=== PATIENT | female | born 1955 | race African-American/Black ===

== ENCOUNTER → 2018-06-05 12:22 | Outpatient (CLI) | payer MEDICAID | END | disposition home or self-care (01) | LOC: D.US 06-04 14:00 | DX: I12.9 Hypertensive chronic kidney disease with stage 1 through stage 4 chronic kidney disease, or unspecified chronic kidney disease (principal); N18.5 Chronic kidney disease, stage 5; E11.21 Type 2 diabetes mellitus with diabetic nephropathy ==

== ENCOUNTER 2018-06-27 08:05 | Outpatient (CLI) | payer MEDICAID ==
[~2018-06-27] VITALS: Ht 170.2 cm; Wt 109.8 kg
[2018-06-27 08:36] LABS: BASOPHILS 0.2 % (0-2); EOSINOPHILS 0.2 % (0-7); HEMATOCRIT 32.7 % (36.0-48.0); HEMOGLOBIN 10.9 g/dL (12-16); IMMATURE GRANULOCYTES 0.2 % (0-5); LYMPHOCYTES 22.8 % (15-50); MCH 30.2 pg (26.0-34.0); MCHC 33.3 g/dL (31.0-37.0); MCV 90.6 fL (80.0-100.0); MEAN PLATELET VOLUME 10.3 fL (7.4-10.4); MONOCYTES 12.8 % (2-11); NEUTROPHILS 63.8 % (40-80); PLATELET COUNT 194 10x3/uL (130-400); RBC 3.61 10x6/uL (4.00-5.40); RDW 12.9 % (11.5-14.5); WBC 5.2 10x3/uL (4.8-10.8)
[2018-06-27 08:55] LABS: INR 1.07 (0.85-1.17); PROTIME 13.4 SECONDS (11.6-15.0)
[2018-06-27 08:56] LABS: APTT 63.2 SECONDS (22.8-39.4)
[2018-06-27 09:05] LABS: ANION GAP 22.6 mmol/L (8-16); CALCIUM 11.9 mg/dL (8.5-10.1); CARBON DIOXIDE 21.6 mmol/L (21.0-32.0); CREATININE - SERUM 8.7 mg/dL (0.6-1.3); POTASSIUM - SERUM 5.2 mmol/L (3.5-5.1)
[2018-06-27 09:35] VITALS: Ht 170.2 cm; Wt 109.8 kg
[2018-06-27] MEDS ORDERED: HALDOL DECAN50 MG/ML (10:14)
[2018-06-27] MEDS ORDERED: LEVOTHYROXINE137 MCG PO (10:15)
[2018-06-27] MEDS ORDERED: CATAPRES TTS-10.1 MG TRANSDERM (10:16)
[2018-06-27] MEDS ORDERED: RENVELA800 MG PO (10:17)
[2018-06-27] MEDS ORDERED: LYRICA75 MG PO (10:17)
[2018-06-27] MEDS ORDERED: COZAAR50 MG PO (10:18)
== END 2018-06-27 12:51 | disposition home or self-care (01) ==
LOC: D.OPS 08:05 → EDSTATUS 14:30 → D.OPS 14:30
PROVIDERS: Surgery
DX: N18.6 End stage renal disease (principal); Z01.810 Encounter for preprocedural cardiovascular examination; Z01.811 Encounter for preprocedural respiratory examination; Z01.812 Encounter for preprocedural laboratory examination; Z53.9 Procedure and treatment not carried out, unspecified reason

== ENCOUNTER 2018-07-11 07:03 | Inpatient (IN) | payer MEDICAID ==
[~2018-07-11] VITALS: Ht 170.2 cm; Wt 109.1 kg
--- NOTE | ~2018-07-11 | OP ---
PATIENT NAME: KAJAL COOPER MEDICAL RECORD: [id number] :53 LOCATION:D. D.2139 ADMISSION DATE:07/11/18 SURGEON: NICOLETTE WANG MD DATE OF OPERATION: 07/15/2018 REFERRED BY: Dr. Watson and Dr. Nunez. PREOPERATIVE DIAGNOSIS: End-stage renal disease. POSTOPERATIVE DIAGNOSIS: End-stage renal disease. OPERATION PERFORMED: Implantation of an Artegraft, axillo-axillary AV graft in the left upper extremity. SURGEON: Nicolette Wang MD ANESTHESIA: Regional block plus general anesthetic via LMA per PHOTOENGRAVING PHOTOGRAPHER. PREOPERATIVE NOTE: Ms. Cooper is a 63-year-old -Cam[place] female patient with end-stage renal disease. She actually just began dialysis last week. After presenting to the hospital for surgery for implantation of her graft, she was found to be a severely hyperkalemic and required medical treatment for that, along with placement of a tunneled dialysis catheter. She has been dialyzed and is now stable with regard to her potassium levels and is returned to the operating room for implantation of that graft. DESCRIPTION OF PROCEDURE: Under general anesthesia with an LMA and after a regional block was applied, the patient was placed on the operating table and prepped and draped in a sterile manner. I examined her with Duplex ultrasound after applying nitroglycerin paste to the skin of the arm and forearm, and using a Roger drain as a proximal venous tourniquet. She really had no usable veins for AV graft in the forearm or antecubital space. Disappointingly as I hoped to be able to implant a forearm loop graft. The axillary vein and artery were suitable and I elected to go ahead with axillo-axillary graft. A transverse axillary incision was made and hemostasis obtained with electrocautery. The axillary artery and proximal basilic vein and axillary vein were dissected and isolated, controlled with Silastic loops. The artery was opened for a 7-mm arteriotomy and flushed proximally and distally with heparinized saline. No systemic anticoagulation was used. I chose a standard Artegraft. This was about 6-7 mm in diameter. It was flushed with saline and heparinized saline as per machine operator farmworker's directions. It was then bevelled and anastomosed end-to-side to the artery with running 6-0 Prolene. Two counter incisions were made and the graft was then placed in a very superficial subcutaneous tunnel and brought back to the axillary wound. It was intermittently flushed with heparinized saline and distended with arterial blood and pressure to make certain there was no twisting. The vein was occluded. It was opened and flushed proximally with heparinized saline and the artery graft was shortened slightly and beveled and anastomosed end-to-side that is end of graft to side of vein with running 6-0 Prolene. When completed, the occluding loops and clamps were released, excellent flow developed immediately within the graft. There was a little bleeding along this venous suture line, which was treated with application of Fibrillar oxidized cellulose. Hemostasis was very adequate at the end of the operation. The wound was irrigated with gentamicin solution. The patient BEING ALLERGIC TO PENICILLIN, she was not given any OPERATIVE REPORT [id number] KAJAL COOPER cephalosporins. She was given vancomycin as her prophylactic systemic antibiotic at the initiation of the operation. The wound was infiltrated with 0.25% Marcaine without epinephrine that is the axillary wound. The 2 counter incisions just above the antecubital space should be covered by her nerve block. The axillary incision was closed with interrupted inverted 3-0 Vicryl and running intracuticular 4-0 Monocryl and the 2 smaller incisions after irrigation with antibiotic solution were closed with interrupted inverted 3-0 Vicryl and then running intracuticular 4-0 Monocryl. The skin incisions were sealed and closed further with Dermabond and dressed with Maxorb AG, Cavilon skin prep, and Tegaderm. The patient was awakened and taken to recovery room. During the last portion of the operation while under anesthesia still, the patient had a marked sudden episode of bradycardia associated with ST segment elevations and Dr. Jansen was called to the room to assist the PHOTOENGRAVING PHOTOGRAPHER and anesthetic changes were made and the patient's ST segments returned to normal and her rate increased to normal sinus rhythm. I requested an EKG in the recovery room and we will send her back to [facility] on telemetry and request cardiology consultation. The patient is diabetic and hypertensive and has end-stage renal disease. I do not know her cardiac history. Blood loss during the procedure was less than 5 cc. None was replaced. Sponges, instruments, and needles were accounted for. No drain was used and no surgical specimen submitted for histopathology. TRANSINT:[id number] Voice Confirmation ID: [id number] DOCUMENT ID: [id number] cc: [facility] [phone] [facility] [phone] NICOLETTE WANG MD CC: GERSON DEGRAChristian DICKEY, ROSALIE NUNEZ, [facility] [id number] HU MARTINEZ DICTATION DATE: 07/15/18 1305 PLANNER/SCHEDULER: 07/15/18 1433 ADM IN [facility] [address] [place] [address]
[~2018-07-11 07:03] MED LIST: CATAPRES TTS-10.1 MG TD; COZAAR50 MG PO; HALDOL DECAN50 MG/ML; LEVOTHYROXINE137 MCG PO; LYRICA75 MG PO; RENVELA800 MG PO
[2018-07-11 07:25] LABS: BASOPHILS 0.2 % (0-2); EOSINOPHILS 0 % (0-7); HEMATOCRIT 32.7 % (36.0-48.0); HEMOGLOBIN 10.5 g/dL (12-16); LYMPHOCYTES 24.5 % (15-50); MCH 29.8 pg (26.0-34.0); MCHC 32.1 g/dL (31.0-37.0); MCV 92.9 fL (80.0-100.0); MEAN PLATELET VOLUME 10.6 fL (7.4-10.4); MONOCYTES 10.7 % (2-11); NEUTROPHILS 64.6 % (40-80); RBC 3.52 10x6/uL (4.00-5.40); RDW 12.9 % (11.5-14.5); WBC 4.2 10x3/uL (4.8-10.8)
[2018-07-11 07:26] LABS: PLATELET COUNT 143 10x3/uL (130-400)
[2018-07-11 07:32] LABS: PROTIME 12.7 SECONDS (11.6-15.0)
[2018-07-11 07:36] LABS: CALCIUM 10.7 mg/dL (8.5-10.1); CARBON DIOXIDE 24.4 mmol/L (21.0-32.0); CREATININE - SERUM 8.2 mg/dL (0.6-1.3)
[2018-07-11 08:03] LABS: POTASSIUM - SERUM 6.4 mmol/L (3.5-5.1)
--- NOTE | 2018-07-11 08:19 | NUR ---
MJ WILL APN PAGED THROUGH ANSWERING SERVICE REGARDING PATIENT'S LAB INCLUDING POTASSIUM, CREATININE, AND PTT
[2018-07-11] MEDS ORDERED: ZOCOR20 MG PO (08:49)
[2018-07-11] MEDS ORDERED: NORVASC5 MG PO (08:51)
[2018-07-11] MEDS ORDERED: ZYLOPRIM100 MG PO (08:51)
[2018-07-11] MEDS ORDERED: FUROSEMIDE40 MG PO (08:52)
[2018-07-11] MEDS ORDERED: AMANTADINE100 M1 PO (08:53)
[2018-07-11] MEDS ORDERED: SODIUM BICARBO325 MG PO (08:53)
[2018-07-11] MEDS ORDERED: BUTALB-APAP-CA1 EACH PO (08:54)
[2018-07-11] MEDS ORDERED: GLIPIZIDE10 MG PO (08:55)
[2018-07-11] MEDS ORDERED: COZAAR50 MG PO (08:55)
[2018-07-11] MEDS ORDERED: BASAGLAR K100 UNIT/1 SC (08:56)
[2018-07-11] MEDS ORDERED: XYZAL PO (09:00)
[2018-07-11 10:07] VITALS: BMI 32.9
[2018-07-11 11:15] LABS: ANION GAP 19.4 mmol/L (8-16); CALCIUM 11.2 mg/dL (8.5-10.1); CARBON DIOXIDE 21.5 mmol/L (21.0-32.0); CREATININE - SERUM 8.3 mg/dL (0.6-1.3); POTASSIUM - SERUM 5.9 mmol/L (3.5-5.1)
--- NOTE | 2018-07-11 13:19 | NUR ---
TRANSFER FROM OR BY STRETCHER. OREINTED TO ROOM. CALL LIGHT IN REACH. WILL CONT. PLAN OF CARE.
[2018-07-11 13:57] VITALS: BP 166/85; BMI 32.9
--- NOTE | 2018-07-11 15:11 | NUR ---
NEW ORDER RECEIVED FOR [facility]AYEXELATE AND PT IS GONE TO DIALYSIS. WILL ADMINISTER MED UPON RETURN TO ROOM.
--- NOTE | 2018-07-11 16:04 | MORECARE ---
CASE MANAGEMENT DISCHARGE SUMMARY PATIENT: KAJAL BOLTON UNIT: [id number] ADM DATE: 07/11/18 AGE: 63 : 54 SEX: F ROOM/BED: D.2131 AUTHOR: ALISON BEE PHYSICIAN: REFERRING PHYSICIAN: HU LUNDBERG MD DATE OF SERVICE: 07/11/18 Discharge Plan Patient Name: KAJAL BOLTON [facility] [facility] 1955 Planned Disposition: Home Anticipated Discharge Date: Discharge Date: Expected LOS: 0 Initial Reviewer: [email or web address] Initial Review Date: 07/11/2018 Generated: 07/11/18 5:04 pm Comments DCP- Discharge Planning Updated by [email or web address]: Mikey Funez on 07/11/18 2:[address] Patient Name: KAJAL BOLTON Admission Status: Elective Accout number: [id number] Admission Date: 07-11-2018 : 1955 Admission Diagnosis: Attending: HU LUNDBERG Current LOS: 1 Anticipated DC Date: Planned Disposition: Home Primary Insurance: MEDICAID [place] Discharge Planning Comments: CM RECEIVED ORDER FOR ARRANGEMENT OF OUTPATIENT DIALYSIS. RN RAMON CASSIDY SPOKE TO [facility] OF PATIENT PATHWAYS AND NOTIFIED OF ORDER. CM ATTEMPTED TO MEET WITH PT FOR INITIAL ASSESSMENT OF DISCHARGE NEEDS. PT WAS NOT IN ROOM AT APPROXIMATELY 1515 AND 1545 HOURS. CM TO ATTEMPT ASSESSMENT OF PT AT A LATER TIME. Tennis Centre Manager: Mikey Funez Patient Name: KAJAL BOLTON Page [id number] at 1604 All edits/amendments must be made on the electronic document DICTATION DATE: 07/11/18 1604 DATA PROCESSOR: EDWARD 07/11/18 1604 RPT#: [id number] DC DATE: STATUS: [facility] [address] [place] [address] END OF REPORT
--- NOTE | 2018-07-11 21:45 | NUR ---
RESUMING CARE. PT IS ALERT LAYING IN THE BED WATCHING TV. NO C/O VOICED AT THIS TIME. RESPIRATIONS EVEN AND UNLABORED. BED IN LOW POSITON WITH CALL LIGHT IN REACH. SIDE RAILS UP X 2. WILL CONTINUE TO MONITOR PT AND FOLLOW PLAN OF CARE.
[2018-07-11 21:51] VITALS: BP 149/90
[2018-07-11 23:53] VITALS: BP 139/69
[2018-07-12 03:55] VITALS: BP 140/78
--- NOTE | 2018-07-12 04:30 | NUR ---
RN NOTE: PATIENT RESTING COMFORTABLY IN BED. RESPIRATIONS ARE EVEN AND UNLABORED. NO S/S OF DISTRESS. CALL LIGHT IWTHIN REACH. WILL CPOC.
[2018-07-12 05:29] LABS: BASOPHILS 0.2 % (0-2); EOSINOPHILS 0 % (0-7); HEMATOCRIT 31.2 % (36.0-48.0); LYMPHOCYTES 14.5 % (15-50); MCH 29.4 pg (26.0-34.0); MCHC 32.1 g/dL (31.0-37.0); MCV 91.8 fL (80.0-100.0); MEAN PLATELET VOLUME 11.3 fL (7.4-10.4); MONOCYTES 15.7 % (2-11); NEUTROPHILS 69.6 % (40-80); PLATELET COUNT 123 10x3/uL (130-400); RDW 12.9 % (11.5-14.5); WBC 4.7 10x3/uL (4.8-10.8)
[2018-07-12 05:58] LABS: ANION GAP 16.4 mmol/L (8-16); CALCIUM 10.6 mg/dL (8.5-10.1); CARBON DIOXIDE 26.6 mmol/L (21.0-32.0); CREATININE - SERUM 6.6 mg/dL (0.6-1.3); THYROID STIMULATING HORMONE 1.36 uIU/mL (0.36-3.74)
--- NOTE | 2018-07-12 07:11 | NUR ---
PT LYING IN BED. REQUESTS REPOSITIONING, PROVIDED. NO CONCERNS/COMPLAINTS AT THIS TIME. CL IN REACH. SRX2.
[2018-07-12 07:28] LABS: HEP B CORE AB TOTAL Negative (Negative); HEPATITIS C ANTIBODY <0.1 S/CO RAT (0.0-0.9)
--- NOTE | 2018-07-12 10:24 | NUR ---
IN DIALYSIS AT THIS TIME. WILL CONT. PLAN OF CARE.
[2018-07-12 10:53] VITALS: Ht 170.2 cm; Wt 109.1 kg
--- NOTE | 2018-07-12 16:40 | NUR ---
PT ACCIDENTLY PULLED OUT I/V. STILL CONFUSED, DOES NOT REMMEBER TAKING IT OUT. FOUND IT TANGLED IN HER BEDSHEETS. WILL RESTART
[2018-07-12 17:11] VITALS: BP 129/87
--- NOTE | 2018-07-12 19:31 | NUR ---
RECEIVED REPORT, WILL ASSUME CARE OF PT, PT ASKING FOR THE BLINDS TO BE CLOSED, DENIES ANY OTHER NEEDS, BED IS LOW, SRX2, CALL LIGHT IN REACH, WILL CONTINUE PLAN OF CARE
[2018-07-12 20:30] VITALS: BP 188/89
--- NOTE | 2018-07-12 21:00 | NUR ---
[id number]-146, NO COVERAGE AT THIS TIME, DIDNT GIVE LANTUS-DOSE NEEDS TO BE VERIFIED
[2018-07-13 04:30] VITALS: BP 155/82
--- NOTE | 2018-07-13 05:00 | NUR ---
PT RESTING IN BED WITH NO DISTRESS. RESPS EVEN/NONLABORED. MONITOR AND CPOC. CALL LIGHT IN REACH. NO NEEDS AT THIS TIME.
[2018-07-13 05:28] LABS: BASOPHILS 0.2 % (0-2); EOSINOPHILS 0 % (0-7); HEMATOCRIT 32.7 % (36.0-48.0); HEMOGLOBIN 10.6 g/dL (12-16); IMMATURE GRANULOCYTES 0.2 % (0-5); LYMPHOCYTES 11.7 % (15-50); MCH 29.8 pg (26.0-34.0); MCHC 32.4 g/dL (31.0-37.0); MCV 91.9 fL (80.0-100.0); MEAN PLATELET VOLUME 11.2 fL (7.4-10.4); MONOCYTES 12.2 % (2-11); NEUTROPHILS 75.7 % (40-80); PLATELET COUNT 112 10x3/uL (130-400); RBC 3.56 10x6/uL (4.00-5.40); RDW 12.9 % (11.5-14.5)
[2018-07-13 05:38] LABS: WBC 6.1 10x3/uL (4.8-10.8)
[2018-07-13 05:42] LABS: ANION GAP 18.4 mmol/L (8-16); CALCIUM 11.4 mg/dL (8.5-10.1); CREATININE - SERUM 6.4 mg/dL (0.6-1.3); POTASSIUM - SERUM 4.4 mmol/L (3.5-5.1)
--- NOTE | 2018-07-13 07:32 | NUR ---
PT LYING IN BED. SISTER CALLED AND REQUESTED HER TO BE CAHGNED. PT IS CLEAN. NO PROBLEMS STATED OR NOTED. I/V STILL OUT. CL IN REACH.
[2018-07-13 09:18] VITALS: BP 136/85
--- NOTE | 2018-07-13 10:57 | NUR ---
UP SOB WITH CALL LIGHT IN REACH. NO NEEDS VOICED. WILL MONITOR.
--- NOTE | 2018-07-13 11:49 | NUR ---
PT CLAIMS THERE ARE PEOPLE IN THE [place]IRROR WATCHING HER. ALSO ASKED FOR A CAPE EARLIER TODAY. I REASURED HER THAT THERE WERE NO PEOPLE IN THE ROOM AND THAT SHE WAS SAFE. PT STATED SHE UNDERSTOOD AND FELT BETTER. CL IN REACH. PT REQUESTED DOOR CLOSED.
--- NOTE | 2018-07-13 12:49 | NUR ---
[facility] CALLED STATING THEY WILL DO THYROID SCAN TOMORROW. NO PREP NEEDED. STATES THEY DO NOT HAVE THE DOSE TO DO IT TODAY.
[2018-07-13 14:30] VITALS: BP 140/72
--- NOTE | 2018-07-13 19:09 | OP ---
PATIENT NAME: KAJAL COOPER MEDICAL RECORD: [id number] :53 LOCATION:D. D.2139 ADMISSION DATE:07/11/18 SURGEON: NICOLETTE WANG MD DATE OF OPERATION: 07/11/2018 REFERRED BY: Hu Watson MD PREOPERATIVE DIAGNOSES: End-stage renal disease with hyperkalemia, now requiring dialysis access. POSTOPERATIVE DIAGNOSES: End-stage renal disease with hyperkalemia, now requiring dialysis access. OPERATION PERFORMED: Implantation of a 19-cm HemoSplit hemodialysis tunneled catheter via the right internal jugular vein with intraoperative ultrasound as well as fluoroscopic guidance. SURGEON: Nicolette Wang MD ANESTHESIA: General per LMA by PLATFORM INSPECTOR. PREOPERATIVE NOTE: Ms. Cooper is a 63-year-old -Ecu[place]orean female with end-stage renal disease, who has not been on dialysis. She was scheduled to come in today for implantation of an AV graft. She was found this morning on her laboratory testing to be hyperkalemic, which required treatment, and Dr. Watson asked that I implant a HemoSplit catheter. So, I am going to do that today and we will delay or put off implantation of the AV graft until another day. So, much of the time alloted to her today has been eaten up by the change in planning on the treatment of her hyperkalemia, that in order to finish all of the patient's schedule for today will have to pass on the fistula or on the graft until another time. DESCRIPTION OF PROCEDURE: Under general anesthesia in supine position, the patient was prepped and draped in sterile manner. Ultrasound guidance was used to first locate the internal jugular vein. It was of normal caliber, fully compressible and generally normal. There was noted about a 1.5-2 cm round or spherical hypoechoic thyroid nodule in the right thyroid lobe. This does have internal echoes and could be debris and fluid-filled cyst or could be a solid lesion. I recommend a followup ultrasound examination and possibly an ultrasound-guided aspiration or biopsy as well. An incision was made at the base of the neck over the internal jugular vein and a micropuncture needle and guidewire was inserted. A catheter and then a larger guidewire were inserted and dilators were passed over the larger wire under fluoroscopy with the tip of the wire in the right atrium and at times in the right ventricle. Lastly, a dilator peel-away sheath was inserted. I chose a 19-cm HemoSplit, made an incision beneath the clavicle and passed the catheter through a subcutaneous tunnel from that incision up to the cervical incision where the catheter was then inserted through the peel-away sheath as it was removed. The catheter ended up positioned appropriately in the right atrium and there were no kinks or other evidence of complication. Both lumens of the catheter were then accessed and aspirated. Free return of blood confirmed. They were then flushed with saline and lastly heparin-locked with heparin 100 units per cc. The catheter was sutured to the skin near the entry site with 2-0 Prolene. The cervical incision was closed with a single interrupted inverted OPERATIVE REPORT [id number] KAJAL COOPER 3-0 Vicryl and Dermabond glue and dressed with Maxorb Ag, Tegaderm, and Cavilon skin prep. A chlorhexidine skin disk was placed around the catheter at the exit site and over that a standard sterile CVL dressing. The patient was awakened and taken to the recovery room. PLAN: The patient at this time remains an outpatient and can be discharged to home. We will find out Dr. Watson's plan. She can either be dialyzed here or perhaps at one of the outpatient dialysis units today or tomorrow. I will plan to have her back in the operating room, hopefully in the next couple of weeks to do her AV graft and we will try to get her thyroid ultrasound on either today or later as an outpatient. Blood loss during the procedure was about 5 cc and unreplaced. Sponges, instruments, and needles were accounted for. No drain was used and no surgical specimen submitted for histopathology. TRANSINT:[id number] Voice Confirmation ID: [id number] DOCUMENT ID: [id number] NICOLETTE WANG MD at 1909 CC: HU WATSON MD [id number] DICTATION DATE: 07/11/18 1235 DATA SYSTEMS MANAGER: 07/11/18 1411 ADM IN [place] [id number] [place] [id number]
--- NOTE | 2018-07-13 19:30 | NUR ---
RECEIVED REPORT, WILL ASSUME CARE OF PT, PT DENIES ANY NEEDS AT THIS TIME, BED IS LOW, SRX2, CALL LIGHT IN REACH, WILL CONTINUE PLAN OF CARE
[2018-07-13 20:30] VITALS: BP 171/91
--- NOTE | 2018-07-13 21:00 | NUR ---
[id number] 6 UNITS HUMULIN R-14 UNITS OF LANTUS
[2018-07-14 04:30] VITALS: BP 143/69
--- NOTE | 2018-07-14 05:00 | NUR ---
PT RESTING IN BED WITH NO DISTRESS. RESPS EVEN/NONLABORED. CALL LIGHT IN REACH. MONITOR AND CPOC.
[2018-07-14 05:34] LABS: BASOPHILS 0.2 % (0-2); EOSINOPHILS 0.2 % (0-7); HEMATOCRIT 30.7 % (36.0-48.0); IMMATURE GRANULOCYTES 0.3 % (0-5); LYMPHOCYTES 20.3 % (15-50); MCH 29.6 pg (26.0-34.0); MCHC 32.6 g/dL (31.0-37.0); MCV 90.8 fL (80.0-100.0); MEAN PLATELET VOLUME 11.6 fL (7.4-10.4); PLATELET COUNT 108 10x3/uL (130-400); RBC 3.38 10x6/uL (4.00-5.40); RDW 12.8 % (11.5-14.5); WBC 6.1 10x3/uL (4.8-10.8)
[2018-07-14 06:12] LABS: ANION GAP 18.8 mmol/L (8-16); CALCIUM 10.8 mg/dL (8.5-10.1); CARBON DIOXIDE 24.3 mmol/L (21.0-32.0); POTASSIUM - SERUM 4.1 mmol/L (3.5-5.1)
[2018-07-14 06:13] LABS: CREATININE - SERUM 8.4 mg/dL (0.6-1.3)
--- NOTE | 2018-07-14 07:30 | NUR ---
A/A/OX4. NO REQUESTS AND DENIES ANY PAIN OR DISCOMFORT. ASSESSMENT COMPLETED AND WILL CONTINUE POC.
[2018-07-14 10:14] VITALS: BP 180/94
--- NOTE | 2018-07-14 19:30 | NUR ---
RECEIVED REPORT, WILL ASSUME CARE OF PT, DENIES ANY NEEDS AT THIS TIME, BED IS LOW, SRX2, CALL LIGHT IN REACH, WILL CONTINUE PLAN OF CARE
[2018-07-14 19:55] VITALS: BP 143/79
[2018-07-15 00:11] VITALS: BP 142/72
[2018-07-15 03:50] VITALS: BP 140/65
[2018-07-15 07:34] LABS: ANION GAP 22.2 mmol/L (8-16); CALCIUM 10.3 mg/dL (8.5-10.1); CARBON DIOXIDE 22.6 mmol/L (21.0-32.0); CREATININE - SERUM 7.4 mg/dL (0.6-1.3); POTASSIUM - SERUM 3.8 mmol/L (3.5-5.1)
--- NOTE | 2018-07-15 07:35 | NUR ---
ASSESSMENT DONE. DENIES NEEDS.
[2018-07-15 07:47] LABS: BASOPHILS 0.2 % (0-2); EOSINOPHILS 0 % (0-7); HEMATOCRIT 30.3 % (36.0-48.0); HEMOGLOBIN 10.1 g/dL (12-16); IMMATURE GRANULOCYTES 0.2 % (0-5); LYMPHOCYTES 14.1 % (15-50); MCH 29.7 pg (26.0-34.0); MCHC 33.3 g/dL (31.0-37.0); MCV 89.1 fL (80.0-100.0); MEAN PLATELET VOLUME 11.7 fL (7.4-10.4); MONOCYTES 12.2 % (2-11); NEUTROPHILS 73.3 % (40-80); PLATELET COUNT 114 10x3/uL (130-400); RDW 12.8 % (11.5-14.5); WBC 5.4 10x3/uL (4.8-10.8)
--- NOTE | 2018-07-15 08:00 | NUR ---
ASSESSMENT DONE. DENIES NEEDS.
[2018-07-15 09:47] VITALS: BP 130/79
--- NOTE | 2018-07-15 11:00 | NUR ---
TO OR PER BED
--- NOTE | 2018-07-15 13:20 | NUR ---
CARE ASSUMED FROM BECKY RUIZ RN. REPORT RECEIVED
--- NOTE | 2018-07-15 13:32 | NUR ---
Nutrition Follow Up: Chart reviewed. Pt is s/p AV Graft. Diet: Renal ADA PO Intake: 75% meal avg Wt loss noted - likely r/t fluid BM: 07/13/18 Labs reviewed - Glucose continues elevated Meds noted including Lasix, Sorbitol Rec continue current diet. RD following.
[2018-07-15 13:48] VITALS: BP 111/60
--- NOTE | 2018-07-15 13:48 | NUR ---
RETURN FROM RR PER BED. LT ARM DRSG INTACT. JULIAN SLING AND ON PILLOW
[2018-07-15 16:52] LABS: CREATINE KINASE 725 UL (21-215); TROPONIN-I 0.029 ng/mL (0.000-0.060)
[2018-07-15 17:11] LABS: CKMB 3.7 U/L (0.0-3.6)
[2018-07-15 19:21] LABS: ANION GAP 20.1 mmol/L (8-16); CALCIUM 9.1 mg/dL (8.5-10.1); CARBON DIOXIDE 22.4 mmol/L (21.0-32.0); CREATININE - SERUM 7.9 mg/dL (0.6-1.3)
[2018-07-15 19:24] LABS: POTASSIUM - SERUM 4.5 mmol/L (3.5-5.1)
--- NOTE | 2018-07-15 19:58 | NUR ---
RESUMING CARE. PT IS ALERT LAYING IN THE BED WATCHING TV WITH NO C/O VOICED AT THIS TIME. BED IN THE LOW POSITION WITH CALL LIGHT IN REACH. WILL CONTINUE TO MONITOR PT AND FOLLOW PLAN OF CARE.
[2018-07-15 20:41] VITALS: BP 152/65
[2018-07-15 22:05] LABS: CKMB 5.9 U/L (0.0-3.6); CREATINE KINASE 637 UL (21-215); TROPONIN-I 0.036 ng/mL (0.000-0.060)
--- NOTE | 2018-07-15 23:46 | NUR ---
NURSE PRACTIONER AIMEE WEST WAS CALLED AND NOTIFIED OF PT RESULTS PER DR. LUNDBERG ORDERED WHICH WAS BMP
[2018-07-16 00:38] VITALS: BP 140/61
--- NOTE | 2018-07-16 04:05 | NUR ---
RN NOTE: PATIENT RESTING COMFORTABLY. RESPIRATIONS ARE EVEN AND UNLABORED. NO S/S OF DISTRESS. NO C/O PAIN. CALL LIGHT WITHIN REACH WILL CPOC.
[2018-07-16 04:34] VITALS: BP 108/60
[2018-07-16 04:57] LABS: BASOPHILS 0.1 % (0-2); EOSINOPHILS 0 % (0-7); HEMOGLOBIN 9.1 g/dL (12-16); IMMATURE GRANULOCYTES 0.2 % (0-5); LYMPHOCYTES 7.5 % (15-50); MCH 29.5 pg (26.0-34.0); MCHC 32.5 g/dL (31.0-37.0); MCV 90.9 fL (80.0-100.0); MEAN PLATELET VOLUME 11.3 fL (7.4-10.4); MONOCYTES 11.1 % (2-11); NEUTROPHILS 81.1 % (40-80); PLATELET COUNT 106 10x3/uL (130-400); RBC 3.08 10x6/uL (4.00-5.40); RDW 13.1 % (11.5-14.5)
[2018-07-16 05:01] LABS: ANION GAP 19.9 mmol/L (8-16); CALCIUM 9.5 mg/dL (8.5-10.1); CARBON DIOXIDE 24.4 mmol/L (21.0-32.0); CREATININE - SERUM 8.5 mg/dL (0.6-1.3); PHOSPHOROUS 8.9 mg/dL (2.5-4.9); POTASSIUM - SERUM 4.3 mmol/L (3.5-5.1)
[2018-07-16 05:11] LABS: WBC 8.8 10x3/uL (4.8-10.8)
--- NOTE | 2018-07-16 07:40 | NUR ---
REPORT RECEIVED. WILL CONTINUE WITH POC. PT CURRENTLY LYING SUPINE. CALL LIGHT W/I REACH. PT IS AAX2 AND UP WITH ASSIST. RR EVEN AND UNLABORED ON RA. R.AC PIV IS SALINE LOCKED. PT DENIES ANY NEEDS AT THIS TIME. WILL CTM.
[2018-07-16 08:19] VITALS: BP 144/65
--- NOTE | 2018-07-16 09:24 | NUR ---
Dialysis Coordinator: met with pt bedside in room on 07/14/18. Patient MARY BETH obtained for [facility]. Patient from [place], requests placement in [place] (where she's from). Referral sent per patient's request. Awaiting response from [facility] clinic regarding acceptance and chair time. MOLLY REILLY.
--- NOTE | 2018-07-16 10:59 | NUR ---
RESP UL ON . SCDS ON. CALL LIGHT IN REACH. WILL CONT. PLAN OF CARE.
[2018-07-16 12:04] VITALS: BP 136/72
--- NOTE | 2018-07-16 12:06 | CN ---
PATIENT NAME:KAJAL BOLTON MEDICAL RECORD: [id number] : 53 LOCATION:D.M2 D.2139 ADMIT DATE: 07/11/18 ACCOUNT: [id number] CONSULTING PHYSICIAN: MATT FERNANDEZ MD REFERRING PHYSICIAN: ROSALIE NUNEZ MD DATE OF CONSULTATION: 07/15/2018 IDENTIFYING DATA: The patient is 63 years old and she is admitted to the hospital for AV fistula placement. CHIEF COMPLAINT: None. HISTORY OF PRESENT ILLNESS: The patient has a long history of diabetes, hypertension, and now has chronic renal failure and is on dialysis. She is hospitalized to have a fistula placed. She has a psychiatric history that is significant for schizophrenia and most likely has a history of medication noncompliance as she is taking a scheduled dose of Haldol Decanoate monthly. At this time, she is under acute stress. She has had some intermittent hallucinations, but no thoughts of harming herself or others and no significant disruptive behaviors; just some oddness, consistent with her chronic mental illness. There is no evidence of acute dangerousness and she denies wanting to hurt herself or others. ASSESSMENT: Schizophrenia. PLAN: I think the patient will improve given a little bit of time and return back to her daily routine. She has already had her Haldol Decanoate injection this month. I am going to increase her scheduled Haldol from 4 to 5 mg a day. If there is some anxiety, I think a p.r.n. dose of Ativan here would be helpful. There is no evidence of acute dangerousness and she should just be followed on an outpatient basis by her primary care physician, renal specialist, and psychiatrist. TRANSINT:[id number] Voice Confirmation ID: [id number] DOCUMENT ID: [id number] MATT FERNANDEZ MD at 1206 CC: [id number] DICTATION DATE: 07/15/18 161 SALES MANAGEMENT INTERN: 07/15/18 192 ADM IN [place] [address] [place] [address]
--- NOTE | 2018-07-16 12:18 | MORECARE ---
CASE MANAGEMENT DISCHARGE SUMMARY PATIENT: KAJAL BOLTON UNIT: [id number] ADM DATE: 07/11/18 AGE: 63 : 54 SEX: F ROOM/BED: D.2139 AUTHOR: ALISON BEE PHYSICIAN: REFERRING PHYSICIAN: ROSALIE NUNEZ MD DATE OF SERVICE: 07/16/18 Discharge Plan Patient Name: KAJAL BOLTON [facility] [facility] 1955 Planned Disposition: Home Anticipated Discharge Date: 07/17/18 Discharge Date: Expected LOS: 6 Initial Reviewer: [email or web address] Initial Review Date: 07/11/2018 Generated: 07/16/18 1:18 pm Comments DCP- Discharge Planning Updated by [email or web address]: Mikey Funez on 07/11/18 2:[address] Patient Name: KAJAL BOLTON Admission Status: Elective Accout number: [id number] Admission Date: 07-11-2018 : 1955 Admission Diagnosis: Attending: HU LUNDBERG Current LOS: 1 Anticipated DC Date: Planned Disposition: Home Primary Insurance: MEDICAID [place] Discharge Planning Comments: CM RECEIVED ORDER FOR ARRANGEMENT OF OUTPATIENT DIALYSIS. RN RAMON CASSIDY SPOKE TO [facility] OF PATIENT PATHWAYS AND NOTIFIED OF ORDER. CM ATTEMPTED TO MEET WITH PT FOR INITIAL ASSESSMENT OF DISCHARGE NEEDS. PT WAS NOT IN ROOM AT APPROXIMATELY 1515 AND 1545 HOURS. CM TO ATTEMPT ASSESSMENT OF PT AT A LATER TIME. Nursing Service Director: Mikey Funez Last DP export: 07/11/18 3:04 p Patient Name: KAJAL BOLTON Page 26790 at 1218 All edits/amendments must be made on the electronic document DICTATION DATE: 07/16/18 1218 FIRE SPRINKLER INSPECTOR: EDWARD 07/16/18 1218 RPT#: [id number] DC DATE: STATUS: ADM IN [facility] [address] [place] [address] END OF REPORT
--- NOTE | 2018-07-16 12:26 | MORECARE ---
CASE MANAGEMENT DISCHARGE SUMMARY PATIENT: KAJAL BOLTON UNIT: [id number] ADM DATE: 07/11/18 AGE: 63 : 54 SEX: F ROOM/BED: D.2139 AUTHOR: ALISON BEE PHYSICIAN: REFERRING PHYSICIAN: ROSALIE NUNEZ MD DATE OF SERVICE: 07/16/18 Discharge Plan Patient Name: KAJAL BOLTON Facility: [facility]:[place] : 1955 Planned Disposition: Home Anticipated Discharge Date: 07/17/18 Discharge Date: Expected LOS: 6 Initial Reviewer: [email or web address] Initial Review Date: 07/11/2018 Generated: 07/16/18 1:26 pm Comments DCP- Discharge Planning Updated by [email or web address]: Mikey Funez on 07/11/18 2:[address] Patient Name: KAJAL BOLTON Admission Status: Elective Accout number: [id number] Admission Date: 07-11-2018 : 1955 Admission Diagnosis: Attending: HU LUNDBERG Current LOS: 1 Anticipated DC Date: Planned Disposition: Home Primary Insurance: MEDICAID [place] Discharge Planning Comments: CM RECEIVED ORDER FOR ARRANGEMENT OF OUTPATIENT DIALYSIS. RN RAMON CASSIDY SPOKE TO [facility] OF PATIENT PATHWAYS AND NOTIFIED OF ORDER. CM ATTEMPTED TO MEET WITH PT FOR INITIAL ASSESSMENT OF DISCHARGE NEEDS. PT WAS NOT IN ROOM AT APPROXIMATELY 1515 AND 1545 HOURS. CM TO ATTEMPT ASSESSMENT OF PT AT A LATER TIME. Compressor Assembler: Mikey Funez DCPIA - Discharge Planning Initial Assessment Updated by [email or web address]: Mikey Funez on 07/16/18 12:21 pm * Is the patient Alert and Oriented? Yes * How many steps to enter\exit or inside your home? NONE * PCP DR. PARKER IN [place] * Pharmacy [facility] IN [place] * Preadmission Environment Home Alone * ADLs Independent * Equipment Glucometer * Other Equipment NO MEDICAL EQUIPMENT PROVIDER PREFERENCE * List name and contact numbers for known caregivers / representatives who currently or will assist patient after discharge: PRIETO TOLLIVER, SISTER, ANA MARÍA KHAN, BROTHER * Verbal permission to speak to the caregivers and representatives has been obtained from the patient. Yes * Community resources currently utilized Private Duty Care * Please name any agencies selected above. [facility], M-F, 4 HOURS PER DAY, * Additional services required to return to the preadmission environment? Yes * Can the patient safely return to the preadmission environment? Yes * Has this patient been hospitalized within the prior 30 days at any hospital? No Last DP export: 07/16/18 11:18 a Patient Name: KAJAL BOLTON Page [id number] at 1226 All edits/amendments must be made on the electronic document DICTATION DATE: 07/16/18 1225 SUSTAINABLE LANDSCAPE ARCHITECT: DM 07/16/18 1225 RPT#: [id number] DC DATE: STATUS: ADM IN [facility] [address] [place] [address] END OF REPORT
--- NOTE | 2018-07-16 12:32 | MORECARE ---
CASE MANAGEMENT DISCHARGE SUMMARY PATIENT: KAJAL BOLTON UNIT: [id number] ADM DATE: 07/11/18 AGE: 63 : 54 SEX: F ROOM/BED: D.1197 AUTHOR: ALISON BEE PHYSICIAN: REFERRING PHYSICIAN: ROSALIE NUNEZ MD DATE OF SERVICE: 07/16/18 Discharge Plan Patient Name: KAJAL BOLTON Facility: [facility]:[place] : 1955 Planned Disposition: Home Anticipated Discharge Date: 07/17/18 Discharge Date: Expected LOS: 6 Initial Reviewer: [id number] Initial Review Date: 07/11/2018 Generated: 07/16/18 1:32 pm Comments DCP- Discharge Planning Updated by [id number]: Mikey Funez on 07/16/18 11:[address] Patient Name: KAJAL BOLTON Admission Status: Elective Accout number: [id number] Admission Date: 07-11-2018 : 1955 Admission Diagnosis:TYPE 2 DIABETES MELLITUS W DIABETIC CHRONIC KIDNEY DISE Attending: ROSALIE NUNEZ Current LOS: 5 Anticipated DC Date: 07-17-2018 Planned Disposition: Home Primary Insurance: MEDICAID [place] Discharge Planning Comments: CM RECEIVED ORDER FOR DISCHARGE PLANNING AND OUTPATIENT DIALYSIS CLINIC ARRAGEMENT IN [place]. CM NOTIFIED JASPREET OF [facility] WHO MET WITH PT AND ADVISED THAT [facility] DOES NOT HAVE AVAILABLE CHAIR AND SHE WILL BE CONTACTING PT'S BROTHER AND WORKING FOR CLINIC ARRANGEMENT IN [place]. CM MET WITH PT IN ROOM TO DISCUSS DISCHARGE PLANNING AND NEEDS. PT REPORTS LIVING AT HOME INDEPENDENTLY AND ALONE. PT HAS A GLUCOMETER WITH NO MEDICAL EQUIPMENT PROVIDER PREFERENCE. PT HAS PERSONAL CARE WITH [facility] IN [place]. PT REPORTS SHE WILL BE ABLE TO GET TO DIALYSIS IN [place] AND THAT HER BROTHER ANA MARÍA KHAN WILL BE TRANSPORTING PT TO AND FROM DIALYSIS. CM DISCUSSED AVAILABILITY OF HOME HEALTH, REHAB SERVICES AND MEDICAL EQUIPMENT. PT DENIES DISCHARGE NEEDS, DECLINES HOME HEALTH NURSE OR THERAPY SERVICES. PT WOULD LIKE CM TO ASK PERSONAL ARE TO INCREASE THE HOURS AND DO SATURDAY SERVICES IF POSSIBLE. PT REPORTS HER SISTER WILL PICK HER UP FOR DISCHARGE HOME. CM CALLED [facility], , SPOKE TO JASPREET WHO INFORMED CM THAT PT'S HOURS ARE AT THE MAXIMUM AND SHE WILL LET THE REGISTERED NURSE KNOW OF PT'S REQUEST FOR WEEKEND HOURS TO SEE IF THEY CAN MEET PT'S EXPECTATIONS. PT DECLINES HOME HEALTH OR REHAB SERVICES. PT PLANS TO DISCHARGE HOME ALONE AND HAS [employer]. FAMILY TO TRANSPORT HOME AT DISCHARGE. CM WAITING OUTPATIENT DIALYSIS CLINIC ARRANGEMENT BY [facility]IENT [facility] COORDINATOR. Check Writing Machine Operator: Mikey Funez DCP- Discharge Planning Updated by [id number]: Mikey Funez on 07/11/18 2:[address] Patient Name: KAJAL BOLTON Admission Status: Elective Accout number: [id number] Admission Date: 07-11-2018 : 1955 Admission Diagnosis: Attending: HU LUNDBERG Current LOS: 1 Anticipated DC Date: Planned Disposition: Home Primary Insurance: MEDICAID [place] Discharge Planning Comments: CM RECEIVED ORDER FOR ARRANGEMENT OF OUTPATIENT DIALYSIS. RN CM HOUSE SPOKE TO JASPREET OF [facility] AND NOTIFIED OF ORDER. CM ATTEMPTED TO MEET WITH PT FOR INITIAL ASSESSMENT OF DISCHARGE NEEDS. PT WAS NOT IN ROOM AT APPROXIMATELY 1515 AND 1545 HOURS. CM TO ATTEMPT ASSESSMENT OF PT AT A LATER TIME. Check Writing Machine Operator: Mikey Funez DCPIA - Discharge Planning Initial Assessment Updated by [id number]: Mikey Funez on 07/16/18 12:21 pm * Is the patient Alert and Oriented? Yes * How many steps to enter\exit or inside your home? NONE * PCP DR. PARKER IN [place] * Pharmacy [facility] [place] * Preadmission Environment Home Alone * ADLs Independent * Equipment Glucometer * Other Equipment NO MEDICAL EQUIPMENT PROVIDER PREFERENCE * List name and contact numbers for known caregivers / representatives who currently or will assist patient after discharge: PRIETO TOLLIVER, SISTER, ANA MARÍA KHAN, BROTHER * Verbal permission to speak to the caregivers and representatives has been obtained from the patient. Yes * Community resources currently utilized Private Duty Care * Please name any agencies selected above. [employer], M-F, 4 HOURS PER DAY, * Additional services required to return to the preadmission environment? Yes * Can the patient safely return to the preadmission environment? Yes * Has this patient been hospitalized within the prior 30 days at any hospital? No Last DP export: 07/16/18 11:26 a Patient Name: KAJAL BOLTON Page 45762 at 1232 All edits/amendments must be made on the electronic document DICTATION DATE: 07/16/18 123 OPERATIONS LABEL CLERK: EDWARD 07/16/18 1232 RPT#: [id number] DC DATE: STATUS: ADM IN [facility] [address] [place] [address] END OF REPORT
--- NOTE | 2018-07-16 19:48 | NUR ---
RESUMED CARE OF PT, LYING IN BED RESPIRATIONS EVEN AND UNLABORED ON ROOM AIR. [address] ST ON TELEMETRY. LEFT ARM IN SLING. NO NEEDS VOICED AT THIS TIME. CALL LIGHT IN REACH. SEE NURSE ASSESSMENT.
[2018-07-16 20:41] VITALS: BP 118/55
[2018-07-17] VITALS: BP 120/48
[2018-07-17 04:55] VITALS: BP 120/50
[2018-07-17 05:13] LABS: ANION GAP 15.6 mmol/L (8-16); CARBON DIOXIDE 28.1 mmol/L (21.0-32.0); CREATININE - SERUM 6.8 mg/dL (0.6-1.3); POTASSIUM - SERUM 3.7 mmol/L (3.5-5.1)
[2018-07-17 05:15] LABS: BASOPHILS 0.1 % (0-2); EOSINOPHILS 0 % (0-7); HEMATOCRIT 26.7 % (36.0-48.0); HEMOGLOBIN 8.7 g/dL (12-16); IMMATURE GRANULOCYTES 0.2 % (0-5); LYMPHOCYTES 9.3 % (15-50); MCH 29.5 pg (26.0-34.0); MCHC 32.6 g/dL (31.0-37.0); MCV 90.5 fL (80.0-100.0); MEAN PLATELET VOLUME 11.2 fL (7.4-10.4); MONOCYTES 14.3 % (2-11); NEUTROPHILS 76.1 % (40-80); PLATELET COUNT 88 10x3/uL (130-400); RBC 2.95 10x6/uL (4.00-5.40); RDW 13.2 % (11.5-14.5); WBC 8.4 10x3/uL (4.8-10.8)
[2018-07-17 05:31] LABS: PHOSPHOROUS 6.6 mg/dL (2.5-4.9)
[2018-07-17 05:46] LABS: PLATELET ESTIMATE DECREASED
--- NOTE | 2018-07-17 06:30 | NUR ---
NO CHANGES FROM PREVIOUS ASSESSMENT, AM MEDS GIVEN. BED BATH AND LINENS CHANGED. CALL LIGHT IN REACH.
--- NOTE | 2018-07-17 07:48 | NUR ---
AM ROUNDS- PT RESTING COMFORTABLY IN BED, EASILY AROUSES TO VOICE. RESP EVEN AND NONLABORED ON RA. RT AC IV SL. HEMOSPLIT NOTED TO RT CHEST, BIOPATCH IN PLACE DRESSING CDI. SLING TO LT ARM, LT AV FISTULA X2 INCISIONS, DRESSINGS CDI. PT DENIES ANY NEEDS AT THIS TIME. CALL LIGHT IN REACH, BEDSIDE RAILS X2, NAD NOTED,W ILL CONTINUE PLAN OF CARE.
[2018-07-17 08:23] VITALS: BP 113/47
--- NOTE | 2018-07-17 08:58 | NUR ---
AM MEDS GIVEN AT THIS TIME. PT SITTING UP TO SIDE OF BED, EATING BREAKFAST, DENIES ANY NEEDS AT THIS TIME. CALL LIGHT IN REACH, NAD NOTED,W ILL CONTINUE OT MONITOR.
--- NOTE | 2018-07-17 10:35 | MORECARE ---
CASE MANAGEMENT DISCHARGE SUMMARY PATIENT: KAJAL BOLTON UNIT: [id number] ADM DATE: 07/11/18 AGE: 63 : 54 SEX: F ROOM/BED: D.2252 AUTHOR: ALISON BEE PHYSICIAN: REFERRING PHYSICIAN: ROSALIE NUNEZ MD DATE OF SERVICE: 07/17/18 Discharge Plan Patient Name: KAJAL BOLTON Facility: [facility]:[place] : 1955 Planned Disposition: Home Anticipated Discharge Date: 07/17/18 Discharge Date: Expected LOS: 6 Initial Reviewer: [id number] Initial Review Date: 07/11/2018 Generated: 07/17/18 11:35 am Comments DCP- Discharge Planning Updated by [id number]: Mikey Funez on 07/16/18 11:[address] Patient Name: KAJAL BOLTON Admission Status: Elective Accout number: [id number] Admission Date: 07-11-2018 : 1955 Admission Diagnosis:TYPE 2 DIABETES MELLITUS W DIABETIC CHRONIC KIDNEY DISE Attending: ROSALIE NUNEZ Current LOS: 5 Anticipated DC Date: 07-17-2018 Planned Disposition: Home Primary Insurance: MEDICAID [place] Discharge Planning Comments: CM RECEIVED ORDER FOR DISCHARGE PLANNING AND OUTPATIENT DIALYSIS CLINIC ARRAGEMENT IN [place]. CM NOTIFIED JASPREET OF [facility] WHO MET WITH PT AND ADVISED THAT [facility] DOES NOT HAVE AVAILABLE CHAIR AND SHE WILL BE CONTACTING PT'S BROTHER AND WORKING FOR CLINIC ARRANGEMENT IN [place]. CM MET WITH PT IN ROOM TO DISCUSS DISCHARGE PLANNING AND NEEDS. PT REPORTS LIVING AT HOME INDEPENDENTLY AND ALONE. PT HAS A GLUCOMETER WITH NO MEDICAL EQUIPMENT PROVIDER PREFERENCE. PT HAS PERSONAL CARE WITH [facility] IN [place]. PT REPORTS SHE WILL BE ABLE TO GET TO DIALYSIS IN [place] AND THAT HER BROTHER ANA MARÍA KHAN WILL BE TRANSPORTING PT TO AND FROM DIALYSIS. CM DISCUSSED AVAILABILITY OF HOME HEALTH, REHAB SERVICES AND MEDICAL EQUIPMENT. PT DENIES DISCHARGE NEEDS, DECLINES HOME HEALTH NURSE OR THERAPY SERVICES. PT WOULD LIKE CM TO ASK PERSONAL ARE TO INCREASE THE HOURS AND DO SATURDAY SERVICES IF POSSIBLE. PT REPORTS HER SISTER WILL PICK HER UP FOR DISCHARGE HOME. CM CALLED [employer], , SPOKE TO JASPREET WHO INFORMED CM THAT PT'S HOURS ARE AT THE MAXIMUM AND SHE WILL LET THE REGISTERED NURSE KNOW OF PT'S REQUEST FOR WEEKEND HOURS TO SEE IF THEY CAN MEET PT'S EXPECTATIONS. PT DECLINES HOME HEALTH OR REHAB SERVICES. PT PLANS TO DISCHARGE HOME ALONE AND HAS [employer]. FAMILY TO TRANSPORT HOME AT DISCHARGE. CM WAITING OUTPATIENT DIALYSIS CLINIC ARRANGEMENT BY PATIENT PATHWAYS COORDINATOR. Hoisting Engineer Pile Driving: Mikey Funez DCP- Discharge Planning Updated by [email or web address]: Mikey Funez on 07/11/18 2:[address] Patient Name: KAJAL BOLTON Admission Status: Elective Accout number: [id number] Admission Date: 07-11-2018 : 1955 Admission Diagnosis: Attending: HU LUNDBERG Current LOS: 1 Anticipated DC Date: Planned Disposition: Home Primary Insurance: MEDICAID [place] Discharge Planning Comments: CM RECEIVED ORDER FOR ARRANGEMENT OF OUTPATIENT DIALYSIS. RN CM HOUSE SPOKE TO JASPREET OF [facility] AND NOTIFIED OF ORDER. CM ATTEMPTED TO MEET WITH PT FOR INITIAL ASSESSMENT OF DISCHARGE NEEDS. PT WAS NOT IN ROOM AT APPROXIMATELY 1515 AND 1545 HOURS. CM TO ATTEMPT ASSESSMENT OF PT AT A LATER TIME. Hoisting Engineer Pile Driving: Mikey Funez DCPIA - Discharge Planning Initial Assessment Updated by [id number]: Mikey Funez on 07/17/18 10:29 am * Is the patient Alert and Oriented? Yes * How many steps to enter\exit or inside your home? NONE * PCP DR. PARKER IN [place] * Pharmacy [facility] [place] * Preadmission Environment Home Alone * ADLs Independent * Equipment Glucometer * Other Equipment NO MEDICAL EQUIPMENT PROVIDER PREFERENCE * List name and contact numbers for known caregivers / representatives who currently or will assist patient after discharge: PRIETO TOLLIVER, SISTER, ANA MARÍA KHAN, BROTHER, * Verbal permission to speak to the caregivers and representatives has been obtained from the patient. Yes * Community resources currently utilized Private Duty Care * Please name any agencies selected above. [employer] [employer], M-F, 4 HOURS PER DAY, * Additional services required to return to the preadmission environment? Yes * Can the patient safely return to the preadmission environment? Yes * Has this patient been hospitalized within the prior 30 days at any hospital? No Last DP export: 07/16/18 11:32 a Patient Name: KAJAL BOLTON Page 28845 at 1035 All edits/amendments must be made on the electronic document DICTATION DATE: 07/17/181033 FLIGHT TECHNICIAN: EDWARD 07/17/181033 RPT#: [id number] DC DATE: STATUS: ADM IN [facility] [address] [place] [address] END OF REPORT
--- NOTE | 2018-07-17 11:21 | NUR ---
BLOOD SUGAR OF 55, GAVE 25ML OF DEXTROSE BLOOD SUGAR CAME UP TO 208. PT DENIES ANY NEEDS AT THIS TIME. OIL PAINT SHADER AT BEDSIDE GETTING VITAL SIGNS. CALL LIGHT IN REACH, NAD NOTED,W ILL CONTINUE TO MONITOR.
--- NOTE | 2018-07-17 11:54 | MORECARE ---
CASE MANAGEMENT DISCHARGE SUMMARY PATIENT: KAJAL BOLTON UNIT: [id number] ADM DATE: 07/11/18 AGE: 63 : 54 SEX: F ROOM/BED: D.8189 AUTHOR: CRISTAL,DOC PHYSICIAN: REFERRING PHYSICIAN: ROSALIE NUNEZ MD DATE OF SERVICE: 07/17/18 Discharge Plan Patient Name: KAJAL BOLTON Facility: [facility]:[place] : 1955 Planned Disposition: Home Anticipated Discharge Date: 07/17/18 Discharge Date: Expected LOS: 6 Initial Reviewer: [id number] Initial Review Date: 07/11/2018 Generated: 07/17/18 12:54 pm Comments DCP- Discharge Planning Updated by [id number]: Faby Martinez on 07/17/18 10:[address] SPOKE WITH JASPREET WILD, CLINICAL LIASON FOR [facility], AFTER ORDER RECEIVED FROM DR LUNDBERG TO TRY TO PLACE THE PATIENT IN THE [place] UNIT INSTEAD OF THE [place] [facility] TO THEM BEING PARTIALLY SHUT DOWN FOR RENOVATIONS. SHE STATED THAT SHE WAS AWARE OF THIS AND ACTUALLY THE PATIENT HAD REQUESTED THE [place] [facility] FROM THE [facility]. SHE SAID THAT CONTACT WOULD NEED TO BE MADE WITH ANA MARÍA BEFORE A CHAIR TIME WILL BE GIVEN. I EXPLAINED WE WOULD TRY TO CONTACT ANA MARÍA BECAUSE SHE STATED THAT CURRENTLY SHE WAS TIED UP IN [place]. ATTEMPT WAS MADE TO CONTACT HIM AT THE NUMBER PROVIDED BY THE PATIENT AT [phone]. I RECEIVED A RECORDING STATING THAT THE AREA CODE FOR THAT NUMBER HAD CHANGED TO 479. I HUNG UP AND REDIALED THE NUMBER WITH THE 479 AND WAS TOLD IT WAS A DISCONNECTED NUMBER. BEE LOCATED ANOTHER CONTACT NUMBER IN HER CHART AND CALLED IN AN ATTEMPT TO FIND ANA MARÍA. HE REACHED THE SISTER PRIETO TOLLIVER ([phone]) AND SHE HANDED THE PHONE TO ANA MARÍA ([phone]). HE WOULD PREFER THAT THE PATIENT BE SENT TO THE [facility] IN [place] BUT UNDERSTANDS AT THE MOMENT THE NEED TO GO TO [place]. HIS PLAN IS FOR THE PATIENT TO TAKE THE MEDICAID VAN TO DIALYSIS AND ONLY TRANSPORT HER ON THE DAYS THE MEDICAID VAN DOES NOT RUN. THIS INFORMATION WAS RELAYED TO JASPREET. NOW THAT PATIENT WILL HAVE TRANSPORT, HOPEFULLY WE CAN GET A CHAIR TIME. DCP- Discharge Planning Updated by [id number]: Mikey Funez on 07/16/18 11:[address] Patient Name: KAJAL BOLTON Admission Status: Elective Accout number: [id number] Admission Date: 07-11-2018 : 1955 Admission Diagnosis:TYPE 2 DIABETES MELLITUS W DIABETIC CHRONIC KIDNEY DISE Attending: ROSALIE NUNEZ Current LOS: 5 Anticipated DC Date: 07-17-2018 Planned Disposition: Home Primary Insurance: MEDICAID [place] Discharge Planning Comments: CM RECEIVED ORDER FOR DISCHARGE PLANNING AND OUTPATIENT DIALYSIS CLINIC ARRAGEMENT IN [place]. CM NOTIFIED JASPREET OF [facility] WHO MET WITH PT AND ADVISED THAT [facility] DOES NOT HAVE AVAILABLE CHAIR AND SHE WILL BE CONTACTING PT'S BROTHER AND WORKING FOR CLINIC ARRANGEMENT IN [place]. CM MET WITH PT IN ROOM TO DISCUSS DISCHARGE PLANNING AND NEEDS. PT REPORTS LIVING AT HOME INDEPENDENTLY AND ALONE. PT HAS A GLUCOMETER WITH NO MEDICAL EQUIPMENT PROVIDER PREFERENCE. PT HAS PERSONAL CARE WITH [facility] IN [place]. PT REPORTS SHE WILL BE ABLE TO GET TO DIALYSIS IN [place] AND THAT HER BROTHER ANA MARÍA KHAN WILL BE TRANSPORTING PT TO AND FROM DIALYSIS. CM DISCUSSED AVAILABILITY OF HOME HEALTH, REHAB SERVICES AND MEDICAL EQUIPMENT. PT DENIES DISCHARGE NEEDS, DECLINES HOME HEALTH NURSE OR THERAPY SERVICES. PT WOULD LIKE CM TO ASK PERSONAL ARE TO INCREASE THE HOURS AND DO SATURDAY SERVICES IF POSSIBLE. PT REPORTS HER SISTER WILL PICK HER UP FOR DISCHARGE HOME. CM CALLED [facility], , SPOKE TO JASPREET WHO INFORMED CM THAT PT'S HOURS ARE AT THE MAXIMUM AND SHE WILL LET THE REGISTERED NURSE KNOW OF PT'S REQUEST FOR WEEKEND HOURS TO SEE IF THEY CAN MEET PT'S EXPECTATIONS. PT DECLINES HOME HEALTH OR REHAB SERVICES. PT PLANS TO DISCHARGE HOME ALONE AND HAS [employer]. FAMILY TO TRANSPORT HOME AT DISCHARGE. CM WAITING OUTPATIENT DIALYSIS CLINIC ARRANGEMENT BY PATIENT PATHWAYS COORDINATOR. Commissioner Of Conciliation: Mikey Funez DCP- Discharge Planning Updated by [id number]: Mikey Funez on 07/11/18 2:[address] Patient Name: KAJAL BOLTON Admission Status: Elective Accout number: [id number] Admission Date: 07-11-2018 : 1955 Admission Diagnosis: Attending: HU LUNDBERG Current LOS: 1 Anticipated DC Date: Planned Disposition: Home Primary Insurance: MEDICAID [place] Discharge Planning Comments: CM RECEIVED ORDER FOR ARRANGEMENT OF OUTPATIENT DIALYSIS. RN RAMON HOUSE SPOKE TO JASPREET OF [facility] AND NOTIFIED OF ORDER. CM ATTEMPTED TO MEET WITH PT FOR INITIAL ASSESSMENT OF DISCHARGE NEEDS. PT WAS NOT IN ROOM AT APPROXIMATELY 1515 AND 1545 HOURS. CM TO ATTEMPT ASSESSMENT OF PT AT A LATER TIME. Commissioner Of Conciliation: Mikey Funez DCPIA - Discharge Planning Initial Assessment Updated by [id number]: Mikey Funez on 07/17/18 10:29 am * Is the patient Alert and Oriented? Yes * How many steps to enter\exit or inside your home? NONE * PCP DR. PARKER IN [place] * Pharmacy [facility] [place] * Preadmission Environment Home Alone * ADLs Independent * Equipment Glucometer * Other Equipment NO MEDICAL EQUIPMENT PROVIDER PREFERENCE * List name and contact numbers for known caregivers / representatives who currently or will assist patient after discharge: PRIETO TOLLIVER, SISTER, ANA MARÍAPATRICIA KHAN, BROTHER, * Verbal permission to speak to the caregivers and representatives has been obtained from the patient. Yes * Community resources currently utilized Private Duty Care * Please name any agencies selected above. [employer] [employer], M-F, 4 HOURS PER DAY, * Additional services required to return to the preadmission environment? Yes * Can the patient safely return to the preadmission environment? Yes * Has this patient been hospitalized within the prior 30 days at any hospital? No Last DP export: 07/17/18 9:35 a Patient Name: KAJAL BOLTON Page 20948 at 1154 All edits/amendments must be made on the electronic document DICTATION DATE: 07/17/18 1154 SENIOR CLINICAL SAS PROGRAMMER: EDWARD 07/17/18 1154 RPT#: [id number] DC DATE: STATUS: ADM IN [facility] [address] [place] [address] END OF REPORT
--- NOTE | 2018-07-17 12:12 | MORECARE ---
CASE MANAGEMENT DISCHARGE SUMMARY PATIENT: KAJAL BOLTON UNIT: [id number] ADM DATE: 07/11/18 AGE: 63 : 53 SEX: F ROOM/BED: D.8397 AUTHOR: CRISTALDOC PHYSICIAN: REFERRING PHYSICIAN: ROSALIE NUNEZ MD DATE OF SERVICE: 07/17/18 Discharge Plan Patient Name: KAJAL BOLTON Facility: [facility]:[place] : 1955 Planned Disposition: Home Anticipated Discharge Date: 07/17/18 Discharge Date: Expected LOS: 6 Initial Reviewer: [id number] Initial Review Date: 07/11/2018 Generated: 07/17/18 1:11 pm Comments DCP- Discharge Planning Updated by [id number]: Mikey Funez on 07/17/18 11:[address] Patient Name: KAJAL BOLTON Encounter No: [id number] : 1955 Primary Insurance: MEDICAID [place] Anticipated DC Date: 07-17-2018 Planned Disposition: Home DCP follow-up note: RAMON RECEIVED MESSAGE FROM JASPREET OF [facility] WHO IS WORKING ON GETTING PT'S DIALYSIS CLINIC ARRANGEMENT IN [place]; JASPREET NEEDS TO VERIFY THAT FAMILY IS GOING TO TRANSPORT PT. RAMON SPOKE TO PT IN ROOM WHO CONTINUES TO REPORT PLAN FOR HER BROTHER ANA MARÍA TO TRANSPORT TO AND FROM [facility] IN [place]. KAJAL BOLTON provided verbal consent to discuss current and ongoing needs with/in the presence of: ANA MARÍA KHAN, BROTHER, OR PRIETOTATA TOLLIVER, SISTER, . RAMON CALLED AND SPOKE TO BOTH PRIETO AND ANA MARÍA AT PRIETO'S HOME. BOTH REPORT PLAN TO ARRANGE MEDICAID TRANSPORTATION FOR DIALYSIS, PT HAS BEEN USING THEM ALREADY FOR MEDICAL APPOINTMENTS. THEY HAVE THE NUMBER FOR MEDICAID TRANSPORTATION SERVICES. ANA MARÍA AND PRIETO REPORT THAT FAMILY WILL BE TAKING PT TO DIALYSIS IF MEDICAID TRANSPORT IS NOT ABLE TO DO SO. THEY UNDERSTAND THAT PT WILL HAVE TO HAVE DIALYSIS IN [place] AND ASKED THAT PT BE PLACED IN WAITING LIST FOR DIALYSIS CENTER IN [place]. [employer] INFORMED JASPREET OF [facility]. PT DECLINES HOME HEALTH OR REHAB SERVICES. PT PLANS TO DISCHARGE HOME ALONE AND HAS HEALTHCARE SPECIALIST SERVICES. FAMILY TO TRANSPORT HOME AT DISCHARGE. CM WAITING OUTPATIENT DIALYSIS CLINIC ARRANGEMENT BY [facility] COORDINATOR. Seed Service Advisor: Mikey Funez DCP- Discharge Planning Updated by [id number]: Faby Cassidy on 07/17/18 10:[address] SPOKE WITH JASPREET WILD, CLINICAL LIASON FOR DAV[place], AFTER ORDER RECEIVED FROM DR LUNDBERG TO TRY TO PLACE THE PATIENT IN THE [place] INSTEAD OF THE [place] SECONDARY TO THEM BEING PARTIALLY SHUT DOWN FOR RENOVATIONS. SHE STATED THAT SHE WAS AWARE OF THIS AND ACTUALLY THE PATIENT HAD REQUESTED THE [place] UN[place] FROM THE START. SHE SAID THAT CONTACT WOULD NEED TO BE MADE WITH ANA MARÍA BEFORE A CHAIR TIME WILL BE GIVEN. I EXPLAINED WE WOULD TRY TO CONTACT ANA MARÍA BECAUSE SHE STATED THAT CURRENTLY SHE WAS TIED UP IN [place]. ATTEMPT WAS MADE TO CONTACT HIM AT THE NUMBER PROVIDED BY THE PATIENT AT [phone]. I RECEIVED A RECORDING STATING THAT THE AREA CODE FOR THAT NUMBER HAD CHANGED TO 479. I HUNG UP AND REDIALED THE NUMBER WITH THE 479 AND WAS TOLD IT WAS A DISCONNECTED NUMBER. BEE LOCATED ANOTHER CONTACT NUMBER IN HER CHART AND CALLED IN AN ATTEMPT TO FIND ANA MARÍA. HE REACHED THE SISTER PRIETO TOLLIVER ([phone]) AND SHE HANDED THE PHONE TO ANA MARÍA ([phone]). HE WOULD PREFER THAT THE PATIENT BE SENT TO THE [facility] IN [place] BUT UNDERSTANDS AT THE MOMENT THE NEED TO GO TO [place]. HIS PLAN IS FOR THE PATIENT TO TAKE THE MEDICAID VAN TO DIALYSIS AND ONLY TRANSPORT HER ON THE DAYS THE MEDICAID VAN DOES NOT RUN. THIS INFORMATION WAS RELAYED TO JASPREET. NOW THAT PATIENT WILL HAVE TRANSPORT, HOPEFULLY WE CAN GET A CHAIR TIME. DCP- Discharge Planning Updated by [id number]: Mikey Funez on 07/16/18 11:[address] Patient Name: KAJAL BOLTON Admission Status: Elective Accout number: [id number] Admission Date: 07-11-2018 : 1955 Admission Diagnosis:TYPE 2 DIABETES MELLITUS W DIABETIC CHRONIC KIDNEY DISE Attending: ROSALIE NUNEZ Current LOS: 5 Anticipated DC Date: 07-17-2018 Planned Disposition: Home Primary Insurance: MEDICAID [place] Discharge Planning Comments: CM RECEIVED ORDER FOR DISCHARGE PLANNING AND OUTPATIENT DIALYSIS CLINIC ARRAGEMENT IN [place]. CM NOTIFIED JASPREET OF [facility] [facility] WHO MET WITH PT AND ADVISED THAT [facility] DOES NOT HAVE AVAILABLE CHAIR AND SHE WILL BE CONTACTING PT'S BROTHER AND WORKING FOR CLINIC ARRANGEMENT IN [place]. CM MET WITH PT IN ROOM TO DISCUSS DISCHARGE PLANNING AND NEEDS. PT REPORTS LIVING AT HOME INDEPENDENTLY AND ALONE. PT HAS A GLUCOMETER WITH NO MEDICAL EQUIPMENT PROVIDER PREFERENCE. PT HAS PERSONAL CARE WITH [facility] [email or web address] [facility] IN [place]. PT REPORTS SHE WILL BE ABLE TO GET TO DIALYSIS IN [place] AND THAT HER BROTHER ANA MARÍA KHAN WILL BE TRANSPORTING PT TO AND FROM DIALYSIS. CM DISCUSSED AVAILABILITY OF HOME HEALTH, REHAB SERVICES AND MEDICAL EQUIPMENT. PT DENIES DISCHARGE NEEDS, DECLINES HOME HEALTH NURSE OR THERAPY SERVICES. PT WOULD LIKE CM TO ASK PERSONAL ARE TO INCREASE THE HOURS AND DO SATURDAY SERVICES IF POSSIBLE. PT REPORTS HER SISTER WILL PICK HER UP FOR DISCHARGE HOME. CM CALLED [facility] [email or web address] [facility], , SPOKE TO JASPREET WHO INFORMED CM THAT PT'S HOURS ARE AT THE MAXIMUM AND SHE WILL LET THE REGISTERED NURSE KNOW OF PT'S REQUEST FOR WEEKEND HOURS TO SEE IF THEY CAN MEET PT'S EXPECTATIONS. PT DECLINES HOME HEALTH OR REHAB SERVICES. PT PLANS TO DISCHARGE HOME ALONE AND HAS HEALTHCARE SPECIALIST SERVICES. FAMILY TO TRANSPORT HOME AT DISCHARGE. CM WAITING OUTPATIENT DIALYSIS CLINIC ARRANGEMENT BY [facility] COORDINATOR. Seed Service Advisor: Mikey Funez DCP- Discharge Planning Updated by [id number]: Mikey Funez on 07/11/18 2:[address] Patient Name: KAJAL BOLTON Admission Status: Elective Accout number: [id number] Admission Date: 07-11-2018 : 1955 Admission Diagnosis: Attending: HU LUNDBERG Current LOS: 1 Anticipated DC Date: Planned Disposition: Home Primary Insurance: MEDICAID [place] Discharge Planning Comments: CM RECEIVED ORDER FOR ARRANGEMENT OF OUTPATIENT DIALYSIS. EVAN CASSIDY SPOKE TO JASPREET OF [employer] AND NOTIFIED OF ORDER. CM ATTEMPTED TO MEET WITH PT FOR INITIAL ASSESSMENT OF DISCHARGE NEEDS. PT WAS NOT IN ROOM AT APPROXIMATELY 1515 AND 1545 HOURS. CM TO ATTEMPT ASSESSMENT OF PT AT A LATER TIME. Seed Service Advisor: Mikey Funez DCPIA - Discharge Planning Initial Assessment Updated by [id number]: Mikey Funez on 07/17/18 10:29 am * Is the patient Alert and Oriented? Yes * How many steps to enter\exit or inside your home? NONE * PCP DR. PARKER IN [place] * Pharmacy [facility] IN [place] * Preadmission Environment Home Alone * ADLs Independent * Equipment Glucometer * Other Equipment NO MEDICAL EQUIPMENT PROVIDER PREFERENCE * List name and contact numbers for known caregivers / representatives who currently or will assist patient after discharge: PRIETO TOLLIVER, SISTER, ANA MARÍA KHAN, BROTHER, * Verbal permission to speak to the caregivers and representatives has been obtained from the patient. Yes * Community resources currently utilized Private Duty Care * Please name any agencies selected above. [facility], M-F, 4 HOURS PER DAY, * Additional services required to return to the preadmission environment? Yes * Can the patient safely return to the preadmission environment? Yes * Has this patient been hospitalized within the prior 30 days at any hospital? No Last DP export: 07/17/18 10:54 a Patient Name: KAJAL BOLTON Page [id number] at 1212 All edits/amendments must be made on the electronic document DICTATION DATE: 07/17/18 1211 CADDY: EDWARD 07/17/18 1211 RPT#: [id number] DC DATE: STATUS: ADM IN [facility] [address] [place] [address] END OF REPORT
[2018-07-17 12:42] VITALS: BP 143/51
[2018-07-17 15:30] VITALS: BP 125/74
--- NOTE | 2018-07-17 16:54 | NUR ---
BLOOD SUGAR OF 61, APPLE JUICE AND GRAM CRACKERS GIVEN AND BLOOD SUGAR RECHECKED AND IT CAME UP TO 90. PT MORE ALERT, DENIES ANY NEEDS AT THIS TIME. CALL LIGHT IN REACH, NAD NOTED, FAMILY AT BEDSIDE.
--- NOTE | 2018-07-17 19:37 | NUR ---
RESUMED CARE OF PT, LYING IN BED WITH EYES CLOSED RESPIRATIONS EVEN AND UNLABORED ON ROOM AIR. 83 SR ON TELEMETRY. RIGHT AC SALINE LOCKED. NO NEEDS NOTED AT THIS TIME, WILL CONTINUE TO MONITOR. SEE NURSE ASSESSMENT.
[2018-07-17 20:00] VITALS: BP 138/59
[2018-07-18] VITALS: BP 135/45
--- NOTE | 2018-07-18 03:01 | NUR ---
LYING IN BED, CALL LIGHT IN REACH. WILL CONTINUE WITH PLAN OF CARE. 104 ST ON TELEMETRY
[2018-07-18 07:51] LABS: ANION GAP 21.1 mmol/L (8-16); BASOPHILS 0.1 % (0-2); CALCIUM 8.2 mg/dL (8.5-10.1); CARBON DIOXIDE 21.8 mmol/L (21.0-32.0); EOSINOPHILS 0 % (0-7); HEMOGLOBIN 8.6 g/dL (12-16); IMMATURE GRANULOCYTES 0.5 % (0-5); LYMPHOCYTES 4.3 % (15-50); MCH 29.7 pg (26.0-34.0); MCHC 33.1 g/dL (31.0-37.0); MCV 89.7 fL (80.0-100.0); MEAN PLATELET VOLUME 11.6 fL (7.4-10.4); MONOCYTES 12.2 % (2-11); NEUTROPHILS 82.9 % (40-80); RDW 12.8 % (11.5-14.5)
[2018-07-18 08:09] LABS: PLATELET COUNT 106 10x3/uL (130-400); WBC 11.5 10x3/uL (4.8-10.8)
[2018-07-18 08:14] VITALS: BP 116/57
[2018-07-18 08:20] LABS: POTASSIUM - SERUM 4.9 mmol/L (3.5-5.1)
[2018-07-18 08:31] LABS: PHOSPHOROUS 8.3 mg/dL (2.5-4.9)
--- NOTE | 2018-07-18 08:44 | NUR ---
0630-ROUNDING DONE WITH PATIENT BEING AROUSED EASILY. OBESE. ON HEART MONITOR SHOWING ST, HR 106. ON ROOM AIR. EYES SEEM TO BE SPLIT (LOOKING SEPERATE WAYS). RIGHT AC PIV SEEN WITH SALINE LOCK. RIGHT CHEST HEMIPLIT WITH C/D/I DRESSING. LEFT AVF WITH + BRUIT AND THRILL. WILL MONITOR.
--- NOTE | 2018-07-18 09:27 | NUR ---
TO DIALYSIS VIA BED, NO AM MEDS GIVEN AT THIS TIME.
--- NOTE | 2018-07-18 09:53 | NUR ---
TOOK HEMISPLILT DRESSING TO DIALYSIS.
--- NOTE | 2018-07-18 13:05 | NUR ---
RETURNS FROM DIALYSIS. ASSISTED TO RESTROOM. PATIENT IS VERY SLOW TO MOVE. INSTRUCTED TO USE CALL LIGHT FOR ALL NEEDS. STATES TO UNDERSTANDING.
--- NOTE | 2018-07-18 13:22 | NUR ---
Nutrition follow-up: Diet: Renal ADA PO intake ~60% average of meals at this time Labs reviewed last BM charted 07/13; laxative added Wt: 234# RDN following.
--- NOTE | 2018-07-18 14:54 | NUR ---
PATIENT CONTINUES TO TRY AND GET UP OUT OF THE BED EVEN WITH THE LIZETH MAT ALARM ON. SHE IS SLIGHTLY WOBBLY ON HER FEET. PLACED BACK TO BED.
--- NOTE | 2018-07-18 14:57 | NUR ---
PATIENT WANTED ME TO CALL HER SISTER, PRIETO. I DID AND TRANSFERRED THE CALL INTO THE ROOM.
[2018-07-18 15:04] VITALS: BP 119/55
--- NOTE | 2018-07-18 16:36 | MORECARE ---
CASE MANAGEMENT DISCHARGE SUMMARY PATIENT: KAJAL BOLTON UNIT: [id number] ADM DATE: 07/11/18 AGE: 63 : 53 SEX: F ROOM/BED: D.2138 AUTHOR: CRISTALDOC PHYSICIAN: REFERRING PHYSICIAN: ROSALIE NUNEZ MD DATE OF SERVICE: 07/18/18 Discharge Plan Patient Name: KAJAL BOLTON Facility: [facility]:[place] : 1955 Planned Disposition: Home Anticipated Discharge Date: 07/17/18 Discharge Date: Expected LOS: 6 Initial Reviewer: [id number] Initial Review Date: 07/11/2018 Generated: 07/18/18 5:36 pm Comments DCP- Discharge Planning Updated by [id number]: Mikey Funez on 07/18/18 3:[address] Patient Name: KAJAL BOLTON Encounter No: [id number] : 1955 Primary Insurance: [place]ID [place] Anticipated DC Date: 07-17-2018 Planned Disposition: Home DCP follow-up note: CM RECEIVED CALL FROM JASPREET [employer] PATIENT [employer], PT HAS BEEN ACCEPTED FOR OUTPATIENT DIALYSIS, CLINIC SCHEDULE: [facility] IN [place], [facility], 1100AM. START DATE 07-22-18 PT DECLINED HOME HEALTH AND REHAB SERVICES. PT PLANS TO DISCHARGE HOME ALONE AND HAS BATCH OPERATOR SERVICES. PT PLANS TO USE FAMILY OR MEDICAID TRANSPORTATION TO GET TO DIALYSIS UNIT. FAMILY TO TRANSPORT HOME AT DISCHARGE. Rig Superintendent: Mikey Funez DCP- Discharge Planning Updated by [id number]: Mikey Funez on 07/17/18 11:[address] Patient Name: KAJAL BOLTON Encounter No: [id number] : 1955 Primary Insurance: [place]ID [place] Anticipated DC Date: 07-17-2018 Planned Disposition: Home DCP follow-up note: CM RECEIVED MESSAGE FROM JASPREET [employer] PAT[employer] WHO IS WORKING ON GETTING PT'S DIALYSIS CLINIC ARRANGEMENT IN [place]; JASPREET NEEDS TO VERIFY THAT FAMILY IS GOING TO TRANSPORT PT. CM SPOKE TO PT IN ROOM WHO CONTINUES TO REPORT PLAN FOR HER BROTHER ANA MARÍA TO TRANSPORT TO AND FROM [facility] IN [place]. KAJAL BOLTON provided verbal consent to discuss current and ongoing needs with/in the presence of: ANA MARÍA KHAN, BROTHER, OR PRIETO TOLLIVER, SISTER, . CM CALLED AND SPOKE TO BOTH PRIETO AND ANA MARÍA AT PRIETO'S HOME. BOTH REPORT PLAN TO ARRANGE MEDICAID TRANSPORTATION FOR DIALYSIS, PT HAS BEEN USING THEM ALREADY FOR MEDICAL APPOINTMENTS. THEY HAVE THE NUMBER FOR MEDICAID TRANSPORTATION SERVICES. ANA MARÍA AND PRIETO REPORT THAT FAMILY WILL BE TAKING PT TO DIALYSIS IF MEDICAID TRANSPORT IS NOT ABLE TO DO SO. THEY UNDERSTAND THAT PT WILL HAVE TO HAVE DIALYSIS IN [place] AND ASKED THAT PT BE PLACED IN WAITING LIST FOR DIALYSIS CENTER IN [place]. RN RAMON CASSIDY INFORMED JASPREET OF [facility]. PT DECLINES HOME HEALTH OR REHAB SERVICES. PT PLANS TO DISCHARGE HOME ALONE AND HAS BATCH OPERATOR SERVICES. FAMILY TO TRANSPORT HOME AT DISCHARGE. CM WAITING OUTPATIENT DIALYSIS CLINIC ARRANGEMENT BY [facility] COORDINATOR. Rig Superintendent: Mikey Funez DCP- Discharge Planning Updated by [id number]: Faby Cassidy on 07/17/18 10:[address] SPOKE WITH JASPREET WILD, CLINICAL LIASON FOR DAVITA, AFTER ORDER RECEIVED FROM DR LUNDBERG TO TRY TO PLACE THE PATIENT IN THE [place] UNIT INSTEAD OF THE [place] SECONDARY TO THEM BEING PARTIALLY SHUT DOWN FOR RENOVATIONS. SHE STATED THAT SHE WAS AWARE OF THIS AND ACTUALLY THE PATIENT HAD REQUESTED THE [place] UNIT FROM THE START. SHE SAID THAT CONTACT WOULD NEED TO BE MADE WITH ANA MARÍA BEFORE A CHAIR TIME WILL BE GIVEN. I EXPLAINED WE WOULD TRY TO CONTACT ANA MARÍA BECAUSE SHE STATED THAT CURRENTLY SHE WAS TIED UP IN [place]. ATTEMPT WAS MADE TO CONTACT HIM AT THE NUMBER PROVIDED BY THE PATIENT AT [phone]. I RECEIVED A RECORDING STATING THAT THE AREA CODE FOR THAT NUMBER HAD CHANGED TO 474. I HUNG UP AND REDIALED THE NUMBER WITH THE 479 AND WAS TOLD IT WAS A DISCONNECTED NUMBER. BEE LOCATED ANOTHER CONTACT NUMBER IN HER CHART AND CALLED IN AN ATTEMPT TO FIND ANA MARÍA. HE REACHED THE SISTER PRIETO TOLLIVER ([phone]) AND SHE HANDED THE PHONE TO ANA MARÍA ([phone]). HE WOULD PREFER THAT THE PATIENT BE SENT TO THE [facility] IN [place] BUT UNDERSTANDS AT THE MOMENT THE NEED TO GO TO [place]. HIS PLAN IS FOR THE PATIENT TO TAKE THE MEDICAID VAN TO DIALYSIS AND ONLY TRANSPORT HER ON THE DAYS THE MEDICAID VAN DOES NOT RUN. THIS INFORMATION WAS RELAYED TO JASPREET. NOW THAT PATIENT WILL HAVE TRANSPORT, HOPEFULLY WE CAN GET A CHAIR TIME. 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 CM NOTIFIED JASPREET OF [facility] WHO MET WITH PT AND ADVISED THAT [facility] DOES NOT HAVE AVAILABLE CHAIR AND SHE WILL BE CONTACTING PT'S BROTHER AND WORKING FOR CLINIC ARRANGEMENT IN [place]. CM MET WITH PT IN ROOM TO DISCUSS DISCHARGE PLANNING AND NEEDS. PT REPORTS LIVING AT HOME INDEPENDENTLY AND ALONE. PT HAS A GLUCOMETER WITH NO MEDICAL EQUIPMENT PROVIDER PREFERENCE. PT HAS PERSONAL CARE WITH [facility] IN [place]. PT REPORTS SHE WILL BE ABLE TO GET TO DIALYSIS IN [place] AND THAT HER BROTHER ANA MARÍA KHAN WILL BE TRANSPORTING PT TO AND FROM DIALYSIS. CM DISCUSSED AVAILABILITY OF HOME HEALTH, REHAB SERVICES AND MEDICAL EQUIPMENT. PT DENIES DISCHARGE NEEDS, DECLINES HOME HEALTH NURSE OR THERAPY SERVICES. PT WOULD LIKE CM TO ASK PERSONAL ARE TO INCREASE THE HOURS AND DO SATURDAY SERVICES IF POSSIBLE. PT REPORTS HER SISTER WILL PICK HER UP FOR DISCHARGE HOME. CM CALLED [facility] [employer] [facility], , SPOKE TO JASPREET WHO INFORMED CM THAT PT'S HOURS ARE AT THE MAXIMUM AND SHE WILL LET THE REGISTERED NURSE KNOW OF PT'S REQUEST FOR WEEKEND HOURS TO SEE IF THEY CAN MEET PT'S EXPECTATIONS. PT DECLINES HOME HEALTH OR REHAB SERVICES. PT PLANS TO DISCHARGE HOME ALONE AND HAS BATCH OPERATOR SERVICES. FAMILY TO TRANSPORT HOME AT DISCHARGE. CM WAITING OUTPATIENT DIALYSIS CLINIC ARRANGEMENT BY PATIENT [facility] COORDINATOR. Rig Superintendent: Mikey Funez DCP- Discharge Planning Updated by [id number]: Mikey Funez on 07/11/18 2:[address] Patient Name: KAJAL BOLTON Admission Status: Elective Accout number: [id number] Admission Date: 07-11-2018 : 1955 Admission Diagnosis: Attending: HU LUNDBERG Current LOS: 1 Anticipated DC Date: Planned Disposition: Home Primary Insurance: [place] Discharge Planning Comments: CM RECEIVED ORDER FOR ARRANGEMENT OF OUTPATIENT DIALYSIS. RN RAMON HOUSE SPOKE TO JASPREET OF [facility] AND NOTIFIED OF ORDER. CM ATTEMPTED TO MEET WITH PT FOR INITIAL ASSESSMENT OF DISCHARGE NEEDS. PT WAS NOT IN ROOM AT APPROXIMATELY 1515 AND 1545 HOURS. CM TO ATTEMPT ASSESSMENT OF PT AT A LATER TIME. Rig Superintendent: Mikey Funez DCPIA - Discharge Planning Initial Assessment Updated by [id number]: Mikey Funez on 07/17/18 10:29 am * Is the patient Alert and Oriented? Yes * How many steps to enter\exit or inside your home? NONE * PCP DR. PARKER IN [place] * Pharmacy [facility] IN [place] * Preadmission Environment Home Alone * ADLs Independent * Equipment Glucometer * Other Equipment NO MEDICAL EQUIPMENT PROVIDER PREFERENCE * List name and contact numbers for known caregivers / representatives who currently or will assist patient after discharge: PRIETO TOLLIVER, SISTER, ANA MARÍAPATRICIA KHAN, BROTHER, * Verbal permission to speak to the caregivers and representatives has been obtained from the patient. Yes * Community resources currently utilized Private Duty Care * Please name any agencies selected above. [employer], M-F, 4 HOURS PER DAY, * Additional services required to return to the preadmission environment? Yes * Can the patient safely return to the preadmission environment? Yes * Has this patient been hospitalized within the prior 30 days at any hospital? No Last DP export: 07/17/18 11:12 a Patient Name: KAJAL BOLTON Page [id number] at 1636 All edits/amendments must be made on the electronic document DICTATION DATE: 07/18/18 1636 BULL DRIVER: EDWARD 07/18/18 1636 RPT#: [id number] DC DATE: STATUS: ADM IN [facility] [address] [place] [address] END OF REPORT
--- NOTE | 2018-07-18 19:36 | NUR ---
LIZETH ALARM IS GOING OFF. PATIENT IS STANDING AT END OF BED TRYING TO GET TO MIRROR SO THAT SHE CAN COMB HER HAIR. ASSISTED X 2 BACK TO BED. ALARM IS ON AND SET AGAIN. CALL LIGHT AT SIDE.
[2018-07-18 21:18] VITALS: BP 134/59
--- NOTE | 2018-07-18 21:58 | NUR ---
PT LAYING IN BED RESTING. ALERT AND ORIENTED X 4. UP WITH ASSISTANCE, WEAKNESS NOTED. LIZETH MAT ON DUE TO PT GETTING UP WITHOUT USING CALL LIGHT. R CHEST HEMESPLIT, DRSG C/D/I. L AV FISTULA, POS BRUIT & THRILL. NORMAL SINUS ON TELE. R AC SL. ROOM AIR. BS 112, NO TREATMENT GIVEN. 2+ PITTING EDEMA NOTED TO JULIÁN HANDS, STATES " THEY ARE ALWAYS LIKE THAT" NO FURTHER CONCERNS AT THIS TIME. BED LOWERED AND LOCKED. CL IN REACH. LIZETH MAT ON. WILL CPOC.
--- NOTE | 2018-07-18 22:01 | NUR ---
PT STATES "I WOULD LIKE A WASH UP TONIGHT" INFORMED PT THAT WE WOULD COME AND CLEAN HER UP AFTER WHILE. NO FURTHER CONCERNS AT THIS TIME. BED LOWERED AND LOCKED. CL IN REACH. WILL CONTINUE TO MONITOR.
[2018-07-19 00:28] VITALS: BP 134/59
--- NOTE | 2018-07-19 01:38 | NUR ---
PT RESTING WITH EYES CLOSED. RESP EVEN AND REGULAR. SR UP X2,CALL LIGHT WITHIN REACH.
[2018-07-19 01:42] VITALS: BP 140/69
[2018-07-19 05:22] VITALS: BP 140/51
[2018-07-19 06:35] LABS: BASOPHILS 0 % (0-2); EOSINOPHILS 0 % (0-7); HEMATOCRIT 24.3 % (36.0-48.0); IMMATURE GRANULOCYTES 0.4 % (0-5); LYMPHOCYTES 12.2 % (15-50); MCH 29.7 pg (26.0-34.0); MCHC 32.9 g/dL (31.0-37.0); MCV 90.3 fL (80.0-100.0); MEAN PLATELET VOLUME 11.1 fL (7.4-10.4); MONOCYTES 15.5 % (2-11); NEUTROPHILS 71.9 % (40-80); PLATELET COUNT 122 10x3/uL (130-400); RBC 2.69 10x6/uL (4.00-5.40); RDW 13.1 % (11.5-14.5)
[2018-07-19 06:42] LABS: WBC 7.4 10x3/uL (4.8-10.8)
[2018-07-19 06:57] LABS: ANION GAP 15.1 mmol/L (8-16); CALCIUM 9.3 mg/dL (8.5-10.1); CARBON DIOXIDE 25.4 mmol/L (21.0-32.0); VANCOMYCIN - RANDOM 9.8 ug/mL (10.0-20.0)
[2018-07-19 06:58] LABS: CREATININE - SERUM 6.1 mg/dL (0.6-1.3); POTASSIUM - SERUM 3.5 mmol/L (3.5-5.1)
--- NOTE | 2018-07-19 07:00 | NUR ---
RECEIVED REPORT. ASSUMED CARE OF PATIENT. RESTING IN BED WITH EYES OPEN. PATIENT COMPLAINED OF SLIGHT HEADACHE. CALL LIGHT WITHIN REACH. GOOD BRUIT AND THRILL TO LEFT ARM FISTULA. NO DISTRESS.
[2018-07-19 07:50] VITALS: BP 150/74
--- NOTE | 2018-07-19 09:00 | NUR ---
MEDICATED FOR HEADACHE @ 0840. NO DISTRESS.
--- NOTE | 2018-07-19 11:44 | NUR ---
FSBS @ [facility] = 65. APPLE JUICE AND POLA CRACKERS PROVIDED. RECHECED FSBS = 60. APPLE JUICE PROVIDED. REVEIWED PATIENT MEDICATIONS, PATIENT RECEIVED GLUCOTROL THIS AM.
[2018-07-19 13:43] VITALS: BP 143/60
--- NOTE | 2018-07-19 14:30 | NUR ---
ASSISTED PATIENT OOB TO CHAIR AT BEDSIDE. NO DISTRESS.
--- NOTE | 2018-07-19 16:30 | NUR ---
FSBS 46. DEXTROSE ADMINISTERED ORDERED, FSBS 203. FSBS DROPPING ALL SHIFT.
--- NOTE | 2018-07-19 17:43 | NUR ---
PATIENT CONSUMED 100% OF MEAL. CALL LIGHT WITHIN REACH. RESTING IN BED AT THIS TIME. NO DISTRESS.
--- NOTE | 2018-07-19 18:18 | NUR ---
SPOKE TO ELVA AND NOTIFIED HER OF PATIENT FSBS AND THAT SHE IS TAKING GLUCOTROL THAT IS 100% EXCRETED BY KIDNEYS AND PATIENT IS DIALYSIS PATIENT. PATIENT IS HAVING LOW FSBS ON NON DIALYSIS DAYS. NEW ORDERS RECEIVED TO HOLD GLUCOTROL UNTIL RENAL REVIEWS. THANKED ELVA.
[2018-07-19 20:30] VITALS: BP 138/65
--- NOTE | 2018-07-19 21:54 | NUR ---
PT LAYING IN BED RESTING. A/O X 4. UP WITH ASSISTANCE. LIZETH MAT ON DUE TO WEAKNESS. VITALS STABLE. MEDS TAKEN WITHOUT DIFFICULTY. BS 110, INSULIN HELD. TOLD PT TO EAT SOME CRACKERS SO SHE DOESNT BOTTOM OUT LIKE SHE DID THROUGHOUT THE DAY. L AV FISTULA. R CHEST HEMESPLIT. PT STILL PRODUCES URINE. R AC IV SL. ROOM AIR. DENIES FURTHER NEEDS AT THIS TIME. BED LOWERED AND LOCKED. CL IN REACH. WILL CPOC.
--- NOTE | 2018-07-19 23:21 | NUR ---
PT C/O BS NEEDING TO BE CHECKED. CHECKED BS, RESULTED IN BS OF 78. GAVE PT JUICE WITH SUGAR, CRACKERS, AND SOME PEANUT BUTTER. RECHECKED BS AFTER THIRTY MINUTES AND BS RESULTED IN 90. THEN GAVE PT SOME MILK, VANILLA PUDDING, AND SOME WATER. AFTER 15-20 MORE MINUTES RECHECK PT BS FOR A THIRD TIME AND BS 145. PT STATES HAVING A HEAD ACHE. WILL SEE WHAT PT CAN HAVE FOR HEADACHE. INSTRUCTED PT TO LET ME KNOW IF SHE STARTS TO FEEL LIKE HER BS IS DROPPING AGAIN. NO FURTHER COMPLAINTS OF CONCERNS AT THIS TIME. WILL CPOC.
--- NOTE | 2018-07-19 23:57 | NUR ---
RESTING IN BED WITH NO DISTRESS. RESPS NONLABORED. CALL LIGHT IN REACH. MONITOR AND CPOC.
[2018-07-20 00:30] VITALS: BP 110/51
[2018-07-20 04:30] VITALS: BP 116/52
[2018-07-20 06:33] LABS: BASOPHILS 0.1 % (0-2); EOSINOPHILS 0 % (0-7); HEMATOCRIT 24.7 % (36.0-48.0); HEMOGLOBIN 8.1 g/dL (12-16); IMMATURE GRANULOCYTES 1.3 % (0-5); LYMPHOCYTES 20.5 % (15-50); MCH 29.6 pg (26.0-34.0); MCHC 32.8 g/dL (31.0-37.0); MCV 90.1 fL (80.0-100.0); MEAN PLATELET VOLUME 10.6 fL (7.4-10.4); MONOCYTES 17.8 % (2-11); NEUTROPHILS 60.3 % (40-80); PLATELET COUNT 142 10x3/uL (130-400); RBC 2.74 10x6/uL (4.00-5.40); RDW 13.1 % (11.5-14.5); WBC 7.1 10x3/uL (4.8-10.8)
[2018-07-20 06:59] LABS: ANION GAP 17.6 mmol/L (8-16); CALCIUM 7.9 mg/dL (8.5-10.1); CREATININE - SERUM 6.6 mg/dL (0.6-1.3); POTASSIUM - SERUM 3.6 mmol/L (3.5-5.1); VANCOMYCIN - RANDOM 7.1 ug/mL (10.0-20.0)
--- NOTE | 2018-07-20 07:00 | NUR ---
RECEIVED REPORT. ASSUMED CARE OF PATIENT. RESTING IN BED WITH EYES CLOSED, EASILY AROUSED. RESP EVEN AND UNLABORED. CALL LIGHT WITHIN REACH. NO DISTRESS.
[2018-07-20 07:25] VITALS: BP 140/64
--- NOTE | 2018-07-20 08:27 | NUR ---
PATIENT CONSUMED 80% OF AM MEAL SITTING TO SIDE OF BED. PATIENT NOW LYING IN BED. NO DISTRESS. CALL LIGHT WITHIN REACH.
--- NOTE | 2018-07-20 08:55 | NUR ---
ASSISTED PATIENT OOB TO RESTROOM AND BACK TO BED. NO DISTRESS. LYING IN BED. BED ALARM PATENT.
--- NOTE | 2018-07-20 09:22 | NUR ---
PATIENTS FAMILY CALLED AND GAVE BRIEF REPORT. EXPLAINED UNSURE IF PATIENT WILL GO HOME DUE TO FSBS CONTINUES TO FALL AND IS BEING CHECKED EVERY COUPLE OF HOURS AND HAVING PATIENT EAT A SNACK. EXPLAINED THAT THIS NURSE WOULD CALL HER BACK WHEN A DECISION HAS BEEN DETERMINED BY THE PHYSICIAN OR INFORMATION TECHNOLOGY SPECIALIST IF PATIENT WILL D/C HOME TODAY. THANKED THEM FOR CALLING.
--- NOTE | 2018-07-20 09:40 | NUR ---
PATIENTS SISTER CALLED AGAIN, UNABLE TO COME TO THE PHONE. PATIENT SISTER SPOKE WITH RENAL INDUCTION HEATING EQUIPMENT SETTERELVA.
--- NOTE | 2018-07-20 11:53 | NUR ---
FSBS 110. NO INSULIN COVERAGE REQUIRED. SITTING TO CHAIR AT BEDSIDE. BATH AND LINEN CHANGE COMPLETE. IV TO RIGHT FOREARM FOUND OUT. CATHETER TIP INTACT. NO BLEEDING FROM SITE. NO COMPLAINTS FROM PATIENT.
--- NOTE | 2018-07-20 14:43 | NUR ---
FSBS CHECKED AFTER PROVIDING VANILLA WAFFER COOKIES, FSBS 125
--- NOTE | 2018-07-20 16:00 | NUR ---
KEYPUNCH OPERATOR AND AFTER SCHOOL DRIVER ORIENTEE ATTEMPTED TO PLACE IV. RIGHT ARM IS THE ONLY EXTREMITY AVAILABLE FOR IV PLACEMENT. HOUSE SUPERVISORS UNABLE TO PLACE IV.
--- NOTE | 2018-07-20 17:01 | NUR ---
FSBS 142. NO INSULIN PER SLIDING SCALE. OFFERING SNACKS EVERY 1.5 HOURS TO KEEP FSBS WITHIN THERAPUETIC LEVEL.
--- NOTE | 2018-07-20 19:45 | NUR ---
PT IS RESTING IN BED WITH EYES OPEN. ALERT AND ORIENTED X 3. DENIES ANY PAIN OR DISCOMFORT AT THIS TIME. REQUESTED ASSIST TO THE BATHROOM. PT ANBULATED WITHOUT ASSIST. VOIDED WITHOUT DIFFICULTY, AND RETURNED TO BED. RIGHT CHEST HEMISPLIT CATH NOTED. DRESSING TO LEFT ARM FISTULA IS CDI. SR'S ARE UP X 2 IN BED. CALL LIGHT AND BEDSIDE TABLE ARE WITHIN EASY REACH.
[2018-07-20 21:41] VITALS: BP 136/52
--- NOTE | 2018-07-20 22:44 | NUR ---
PT UP TO SINK IN ROOM TO FILL CUP WITH WATER. BED ALARM GOING OFF. PT ASKED TO CALL NURSE FOR ASSIST ANY TIME SHE NEEDED ANYTHING, AND NOT TO GET UP BY HERSELF. VERBAL UNDERSTANDING VOICED.
[2018-07-21 00:43] VITALS: BP 118/57
--- NOTE | 2018-07-21 00:57 | NUR ---
PT RESTING IN BED WITH EYES CLOSED.
[2018-07-21 04:17] VITALS: BP 127/50
--- NOTE | 2018-07-21 05:28 | NUR ---
RESTING WITH NO DISTRESS. MONITOR AND CPOC.
[2018-07-21 05:53] LABS: HEMATOCRIT 25.5 % (36.0-48.0); HEMOGLOBIN 8.3 g/dL (12-16); MCH 29.3 pg (26.0-34.0); MCHC 32.5 g/dL (31.0-37.0); MCV 90.1 fL (80.0-100.0); MEAN PLATELET VOLUME 10.3 fL (7.4-10.4); PLATELET COUNT 137 10x3/uL (130-400); RBC 2.83 10x6/uL (4.00-5.40); RDW 13.1 % (11.5-14.5); WBC 7.5 10x3/uL (4.8-10.8)
[2018-07-21 06:08] LABS: ANION GAP 18.8 mmol/L (8-16); CALCIUM 8.5 mg/dL (8.5-10.1); CARBON DIOXIDE 22.3 mmol/L (21.0-32.0); CREATININE - SERUM 6.7 mg/dL (0.6-1.3); POTASSIUM - SERUM 4.1 mmol/L (3.5-5.1); VANCOMYCIN - RANDOM 6.6 ug/mL (10.0-20.0)
[2018-07-21 07:45] VITALS: BP 166/49
--- NOTE | 2018-07-21 08:00 | NUR ---
PT SISTER EDITH CALLED AND ASKED IF PT IS BEING DISCHARGED TODAY AND IF SO WHEN I STATED YES SHE IS BUT I DON'T HAVE AN EXACT TIME. SHE VERBALIZED UNDERSTANDING AND ASKED IF WE WOULD CALL AND TELL HER WHEN TO LEAVE HER HOUSE SINCE SHE IS PT'S RIDE. I STATED TO HER YES SOMEONE WILL CALL.
[2018-07-21 08:01] LABS: LYMPHOCYTES 20 % (15-50); MONOCYTES 11 % (2-11); NEUTROPHILS 69 % (40-80); PLATELET ESTIMATE NORMAL
[2018-07-21 08:02] LABS: HYPOCHROMASIA OCC; ROULEAUX OCC
--- NOTE | 2018-07-21 09:01 | MORECARE ---
CASE MANAGEMENT DISCHARGE SUMMARY PATIENT: KAJAL BOLTON UNIT: [id number] ADM DATE: 07/11/18 AGE: 63 : 54 SEX: F ROOM/BED: D.2137 AUTHOR: ALISON BEE PHYSICIAN: REFERRING PHYSICIAN: ROSALIE NUNEZ MD DATE OF SERVICE: 07/21/18 Discharge Plan Patient Name: KAJAL BOLTON Facility: [facility]:[place] : 1955 Planned Disposition: Home Anticipated Discharge Date: 07/17/18 Discharge Date: Expected LOS: 6 Initial Reviewer: [id number] Initial Review Date: 07/11/2018 Generated: 07/21/18 10:01 am Comments DCP- Discharge Planning Updated by [id number]: Mikey Funez on 07/21/18 7:[address] Patient Name: KAJAL BOLTON Encounter No: [id number] : 1955 Primary Insurance: [place]ID [place] Anticipated DC Date: 07-17-2018 Planned Disposition: Home DCP follow-up note: CM CALLED PT'S SISTER, PRIETO TOLLIVER, SISTER, , PROVIDED DIALYSIS SCHEDULE. PT'S SISTER REPORTS FAMILY WILL TRANSPORT UNTIL THEY CAN GET MEDICAID TRANSPORTATION ARRANGED PRIETO REMINDED CM THAT THEY WANT TO BE ON WAITING LIST FOR [place] [facility]. RN HOUSE NOTIFIED JASPREET OF [facility]. IMPORTANT MESSAGE FROM MEDICARE PROVIDED AND EXPLAINED TO PT. PT DENIES FURTHER NEEDS. FAMILY TO TRANSPORT HOME TODAY. SOLDER TECHNICIAN NURSE NOTIFIED Mikey Funez CASE MANAGEMENT DCP- Discharge Planning Updated by [id number]: Mikey Funez on 07/18/18 3:[address] Patient Name: KAJAL BOLTON Encounter No: [id number] : 1955 Primary Insurance: MEDICAID [place] Anticipated DC Date: 07-17-2018 Planned Disposition: Home DCP follow-up note: CM RECEIVED CALL FROM JASPREET OF [facility], PT HAS BEEN ACCEPTED FOR OUTPATIENT DIALYSIS, CLINIC SCHEDULE: [facility], 1100AM. START DATE 07-22-18 PT DECLINED HOME HEALTH AND REHAB SERVICES. PT PLANS TO DISCHARGE HOME ALONE AND HAS REFRIGERATION ENGINEER SERVICES. PT PLANS TO USE FAMILY OR MEDICAID TRANSPORTATION TO GET TO DIALYSIS UNIT. FAMILY TO TRANSPORT HOME AT DISCHARGE. Sealer Aircraft: Mikey Funez DCP- Discharge Planning Updated by [id number]: Mikey Funez on 07/17/18 11:[address] Patient Name: KAJAL BOLTON Encounter No: [id number] : 1955 Primary Insurance: MEDICAID [facility] DC Date: 07-17-2018 Planned Disposition: Home DCP follow-up note: CM RECEIVED MESSAGE FROM JASPREET OF [facility] WHO IS WORKING ON GETTING PT'S DIALYSIS CLINIC ARRANGEMENT IN [place]; JASPREET NEEDS TO VERIFY THAT FAMILY IS GOING TO TRANSPORT PT. CM SPOKE TO PT IN ROOM WHO CONTINUES TO REPORT PLAN FOR HER BROTHER ANA MARÍA TO TRANSPORT TO AND FROM [facility] IN [place]. KAJAL BOLTON provided verbal consent to discuss current and ongoing needs with/in the presence of: ANA MARÍA KHAN, BROTHER, OR PRIETOORI TOLLIVER, SISTER, . CM CALLED AND SPOKE TO BOTH PRIETO AND ANA MARÍA AT PRIETO'S HOME. BOTH REPORT PLAN TO ARRANGE MEDICAID TRANSPORTATION FOR DIALYSIS, PT HAS BEEN USING THEM ALREADY FOR MEDICAL APPOINTMENTS. THEY HAVE THE NUMBER FOR MEDICAID TRANSPORTATION SERVICES. ANA MARÍA AND PRIETO REPORT THAT FAMILY WILL BE TAKING PT TO DIALYSIS IF MEDICAID TRANSPORT IS NOT ABLE TO DO SO. THEY UNDERSTAND THAT PT WILL HAVE TO HAVE DIALYSIS IN [place] AND ASKED THAT PT BE PLACED IN WAITING LIST FOR DIALYSIS CENTER IN [place]. EVAN CASSIDY INFORMED JASPREET OF [facility]. PT DECLINES HOME HEALTH OR REHAB SERVICES. PT PLANS TO DISCHARGE HOME ALONE AND HAS REFRIGERATION ENGINEER SERVICES. FAMILY TO TRANSPORT HOME AT DISCHARGE. CM WAITING OUTPATIENT DIALYSIS CLINIC ARRANGEMENT BY [facility] COORDINATOR. Sealer Aircraft: Mikey Funez DCP- Discharge Planning Updated by [id number]: Faby Cassidy on 07/17/18 10:[address] SPOKE WITH JASPREET WILD, CLINICAL LIASON FOR [place], AFTER ORDER RECEIVED FROM DR LUNDBERG TO TRY TO PLACE THE PATIENT IN THE [facility] UNIT INSTEAD OF THE [place] SECONDARY TO THEM BEING PARTIALLY SHUT DOWN FOR RENOVATIONS. SHE STATED THAT SHE WAS AWARE OF THIS AND ACTUALLY THE PATIENT HAD REQUESTED THE [place] UNIT FROM THE START. SHE SAID THAT CONTACT WOULD NEED TO BE MADE WITH ANA MARÍA BEFORE A CHAIR TIME WILL BE GIVEN. I EXPLAINED WE WOULD TRY TO CONTACT ANA MARÍA BECAUSE SHE STATED THAT CURRENTLY SHE WAS TIED UP IN [place]. ATTEMPT WAS MADE TO CONTACT HIM AT THE NUMBER PROVIDED BY THE PATIENT AT [phone]. I RECEIVED A RECORDING STATING THAT THE AREA CODE FOR THAT NUMBER HAD CHANGED TO 479. I HUNG UP AND REDIALED THE NUMBER WITH THE 479 AND WAS TOLD IT WAS A DISCONNECTED NUMBER. BEE LOCATED ANOTHER CONTACT NUMBER IN HER CHART AND CALLED IN AN ATTEMPT TO FIND ANA MARÍA. HE REACHED THE SISTER PRIETO TOLLIVER ([phone]) AND SHE HANDED THE PHONE TO ANA MARÍA ([phone]). HE WOULD PREFER THAT THE PATIENT BE SENT TO THE [facility] IN [place] BUT UNDERSTANDS AT THE MOMENT THE NEED TO GO TO [place]. HIS PLAN IS FOR THE PATIENT TO TAKE THE MEDICAID VAN TO DIALYSIS AND ONLY TRANSPORT HER ON THE DAYS THE MEDICAID VAN DOES NOT RUN. THIS INFORMATION WAS RELAYED TO JASPREET. NOW THAT PATIENT WILL HAVE TRANSPORT, HOPEFULLY WE CAN GET A CHAIR TIME. DCP- Discharge Planning Updated by [id number]: Mikey Perezwell on 07/16/18 11:[address] Patient Name: KAJAL BOLTON Admission Status: Elective Accout number: [id number] Admission Date: 07-11-2018 : 1955 Admission Diagnosis:TYPE 2 DIABETES MELLITUS W DIABETIC CHRONIC KIDNEY DISE Attending: ROSALIE NUNEZ Current LOS: 5 Anticipated DC Date: 07-17-2018 Planned Disposition: Home Primary Insurance: MED[place]ID [place] Discharge Planning Comments: RAMON RECEIVED ORDER FOR DISCHARGE PLANNING AND OUTPATIENT DIALYSIS CLINIC ARRAGEMENT IN [place]. RAMON NOTIFIED JASPREET OF [facility] WHO MET WITH PT AND ADVISED THAT [facility] DOES NOT HAVE AVAILABLE CHAIR AND SHE WILL BE CONTACTING PT'S BROTHER AND WORKING FOR CLINIC ARRANGEMENT IN [place]. CM MET WITH PT IN ROOM TO DISCUSS DISCHARGE PLANNING AND NEEDS. PT REPORTS LIVING AT HOME INDEPENDENTLY AND ALONE. PT HAS A GLUCOMETER WITH NO MEDICAL EQUIPMENT PROVIDER PREFERENCE. PT HAS PERSONAL CARE WITH [facility] IN [place]. PT REPORTS SHE WILL BE ABLE TO GET TO DIALYSIS IN [place] AND THAT HER BROTHER ANA MARÍA KHAN WILL BE TRANSPORTING PT TO AND FROM DIALYSIS. CM DISCUSSED AVAILABILITY OF HOME HEALTH, REHAB SERVICES AND MEDICAL EQUIPMENT. PT DENIES DISCHARGE NEEDS, DECLINES HOME HEALTH NURSE OR THERAPY SERVICES. PT WOULD LIKE CM TO ASK PERSONAL ARE TO INCREASE THE HOURS AND DO SATURDAY SERVICES IF POSSIBLE. PT REPORTS HER SISTER WILL PICK HER UP FOR DISCHARGE HOME. CM CALLED [facility], , SPOKE TO JASPREET WHO INFORMED CM THAT PT'S HOURS ARE AT THE MAXIMUM AND SHE WILL LET THE REGISTERED NURSE KNOW OF PT'S REQUEST FOR WEEKEND HOURS TO SEE IF THEY CAN MEET PT'S EXPECTATIONS. PT DECLINES HOME HEALTH OR REHAB SERVICES. PT PLANS TO DISCHARGE HOME ALONE AND HAS REFRIGERATION ENGINEER SERVICES. FAMILY TO TRANSPORT HOME AT DISCHARGE. CM WAITING OUTPATIENT DIALYSIS CLINIC ARRANGEMENT BY [facility] COORDINATOR. Sealer Aircraft: Mikey Funez DCP- Discharge Planning Updated by [id number]: Mikey Funez on 07/11/18 2:[address] Patient Name: KAJAL BOLTON Admission Status: Elective Accout number: [id number] Admission Date: 07-11-2018 : 1955 Admission Diagnosis: Attending: HU LUNDBERG Current LOS: 1 Anticipated DC Date: Planned Disposition: Home Primary Insurance: MEDICAID [place] Discharge Planning Comments: CM RECEIVED ORDER FOR ARRANGEMENT OF OUTPATIENT DIALYSIS. RN RAMON HOUSE SPOKE TO JASPREET OF [facility] AND NOTIFIED OF ORDER. CM ATTEMPTED TO MEET WITH PT FOR INITIAL ASSESSMENT OF DISCHARGE NEEDS. PT WAS NOT IN ROOM AT APPROXIMATELY 1515 AND 1545 HOURS. CM TO ATTEMPT ASSESSMENT OF PT AT A LATER TIME. Sealer Aircraft: Mikey Funez DCPIA - Discharge Planning Initial Assessment Updated by [email or web address]: Mikey Funez on 07/17/18 10:29 am * Is the patient Alert and Oriented? Yes * How many steps to enter\exit or inside your home? NONE * PCP DR. PARKER IN [place] * Pharmacy [facility] IN [place] * Preadmission Environment Home Alone * ADLs Independent * Equipment Glucometer * Other Equipment NO MEDICAL EQUIPMENT PROVIDER PREFERENCE * List name and contact numbers for known caregivers / representatives who currently or will assist patient after discharge: PRIETO TOLLIVER, SISTER, ANA MARÍA KHAN, BROTHER, * Verbal permission to speak to the caregivers and representatives has been obtained from the patient. Yes * Community resources currently utilized Private Duty Care * Please name any agencies selected above. [facility], M-F, 4 HOURS PER DAY, * Additional services required to return to the preadmission environment? Yes * Can the patient safely return to the preadmission environment? Yes * Has this patient been hospitalized within the prior 30 days at any hospital? No Last DP export: 07/18/18 3:36 p Patient Name: KAJAL BOLTON Page 54417 at 0901 All edits/amendments must be made on the electronic document DICTATION DATE: 07/21/18900 HAMMER SHOP SUPERVISOR: EDWARD 07/21/18900 RPT#: [id number] DC DATE: STATUS: ADM IN [facility] [address] [place] [address] END OF REPORT
--- NOTE | 2018-07-21 09:24 | MORECARE ---
CASE MANAGEMENT DISCHARGE SUMMARY PATIENT: KAJAL BOLTON UNIT: [id number] ADM DATE: 07/11/18 AGE: 63 : 54 SEX: F ROOM/BED: D.2134 AUTHOR: ALISON BEE PHYSICIAN: REFERRING PHYSICIAN: ROSALIE NUNEZ MD DATE OF SERVICE: 07/21/18 Discharge Plan Patient Name: KAJAL BOLTON Facility: [facility]:[place] : 1955 Planned Disposition: Home Anticipated Discharge Date: 07/21/18 Discharge Date: Expected LOS: 10 Initial Reviewer: [id number] Initial Review Date: 07/11/2018 Generated: 07/21/18 10:24 am Comments DCP- Discharge Planning Updated by [id number]: Mikey Funez on 07/21/18 7:[address] Patient Name: KAJAL BOLTON Encounter No: [id number] : 1955 Primary Insurance: MEDICAID [place] Anticipated DC Date: 07-17-2018 Planned Disposition: Home DCP follow-up note: CM CALLED PT'S SISTER, PRIETO TOLLIVER, SISTER, , PROVIDED DIALYSIS SCHEDULE. PT'S SISTER REPORTS FAMILY WILL TRANSPORT UNTIL THEY CAN GET MEDICAID TRANSPORTATION ARRANGED PRIETO REMINDED CM THAT THEY WANT TO BE ON WAITING LIST FOR [place] [facility]. RN HOUSE NOTIFIED JASPREET OF [facility]. IMPORTANT MESSAGE FROM MEDICARE PROVIDED AND EXPLAINED TO PT. PT DENIES FURTHER NEEDS. FAMILY TO TRANSPORT HOME TODAY. RPG DEVELOPER NURSE NOTIFIED Mikey Funez CASE MANAGEMENT DCP- Discharge Planning Updated by [email or web address]: Mikey Funez on 07/18/18 3:[address] Patient Name: KAJAL BOLTON Encounter No: [id number] : 1955 Primary Insurance: MEDICAID [place] Anticipated DC Date: 07-17-2018 Planned Disposition: Home DCP follow-up note: CM RECEIVED CALL FROM JASPREET OF [facility], PT HAS BEEN ACCEPTED FOR OUTPATIENT DIALYSIS, CLINIC SCHEDULE: [facility], 1100AM. START DATE 07-22-18 PT DECLINED HOME HEALTH AND REHAB SERVICES. PT PLANS TO DISCHARGE HOME ALONE AND HAS PROFESSOR SCULPTURE SERVICES. PT PLANS TO USE FAMILY OR MEDICAID TRANSPORTATION TO GET TO DIALYSIS UNIT. FAMILY TO TRANSPORT HOME AT DISCHARGE. Fuel Cell Technician: Mikey Funez DCP- Discharge Planning Updated by [id number]: Mikey Funez on 07/17/18 11:[address] Patient Name: KAJAL BOLTON Encounter No: [id number] : 1955 Primary Insurance: MEDICAID [facility] DC Date: 07-17-2018 Planned Disposition: Home DCP follow-up note: CM RECEIVED MESSAGE FROM JASPREET OF [facility] WHO IS WORKING ON GETTING PT'S DIALYSIS CLINIC ARRANGEMENT IN [place]; JASPREET NEEDS TO VERIFY THAT FAMILY IS GOING TO TRANSPORT PT. CM SPOKE TO PT IN ROOM WHO CONTINUES TO REPORT PLAN FOR HER BROTHER ANA MARÍA TO TRANSPORT TO AND FROM [facility] IN [place]. KAJAL BOLTON provided verbal consent to discuss current and ongoing needs with/in the presence of: ANA MARÍA KHAN, BROTHER, OR PRIETOORI TOLLIVER, SISTER, . CM CALLED AND SPOKE TO BOTH PRIETO AND ANA MARÍA AT PRIETO'S HOME. BOTH REPORT PLAN TO ARRANGE MEDICAID TRANSPORTATION FOR DIALYSIS, PT HAS BEEN USING THEM ALREADY FOR MEDICAL APPOINTMENTS. THEY HAVE THE NUMBER FOR MEDICAID TRANSPORTATION SERVICES. ANA MARÍA AND PRIETO REPORT THAT FAMILY WILL BE TAKING PT TO DIALYSIS IF MEDICAID TRANSPORT IS NOT ABLE TO DO SO. THEY UNDERSTAND THAT PT WILL HAVE TO HAVE DIALYSIS IN [place] AND ASKED THAT PT BE PLACED IN WAITING LIST FOR DIALYSIS CENTER IN [place]. EVAN CASSIDY INFORMED JASPREET OF [facility]. PT DECLINES HOME HEALTH OR REHAB SERVICES. PT PLANS TO DISCHARGE HOME ALONE AND HAS PROFESSOR SCULPTURE SERVICES. FAMILY TO TRANSPORT HOME AT DISCHARGE. CM WAITING OUTPATIENT DIALYSIS CLINIC ARRANGEMENT BY [facility] COORDINATOR. Fuel Cell Technician: Mikey Funez DCP- Discharge Planning Updated by [id number]: Faby Cassidy on 07/17/18 10:[address] SPOKE WITH JASPREET WILD, CLINICAL LIASON FOR [place], AFTER ORDER RECEIVED FROM DR LUNDBERG TO TRY TO PLACE THE PATIENT IN THE NIRU UNIT INSTEAD OF THE [place] SECONDARY TO THEM BEING PARTIALLY SHUT DOWN FOR RENOVATIONS. SHE STATED THAT SHE WAS AWARE OF THIS AND ACTUALLY THE PATIENT HAD REQUESTED THE NIRU UNIT FROM THE START. SHE SAID THAT CONTACT WOULD NEED TO BE MADE WITH ANA MARÍA BEFORE A CHAIR TIME WILL BE GIVEN. I EXPLAINED WE WOULD TRY TO CONTACT ANA MARÍA BECAUSE SHE STATED THAT CURRENTLY SHE WAS TIED UP IN [place]. ATTEMPT WAS MADE TO CONTACT HIM AT THE NUMBER PROVIDED BY THE PATIENT AT [phone]. I RECEIVED A RECORDING STATING THAT THE AREA CODE FOR THAT NUMBER HAD CHANGED TO 479. I HUNG UP AND REDIALED THE NUMBER WITH THE 479 AND WAS TOLD IT WAS A DISCONNECTED NUMBER. BEE LOCATED ANOTHER CONTACT NUMBER IN HER CHART AND CALLED IN AN ATTEMPT TO FIND ANA MARÍA. HE REACHED THE SISTER PRIETO TOLLIVER ([phone]) AND SHE HANDED THE PHONE TO ANA MARÍA ([phone]). HE WOULD PREFER THAT THE PATIENT BE SENT TO THE [facility] IN [place] BUT UNDERSTANDS AT THE MOMENT THE NEED TO GO TO [place]. HIS PLAN IS FOR THE PATIENT TO TAKE THE MEDICAID VAN TO DIALYSIS AND ONLY TRANSPORT HER ON THE DAYS THE MEDICAID VAN DOES NOT RUN. THIS INFORMATION WAS RELAYED TO JASPREET. NOW THAT PATIENT WILL HAVE TRANSPORT, HOPEFULLY WE CAN GET A CHAIR TIME. DCP- Discharge Planning Updated by [id number]: Mikey Perezwell on 07/16/18 11:[address] Patient Name: KAJAL BOLTON Admission Status: Elective Accout number: [id number] Admission Date: 07-11-2018 : 1955 Admission Diagnosis:TYPE 2 DIABETES MELLITUS W DIABETIC CHRONIC KIDNEY DISE Attending: ROSALIE NUNEZ Current LOS: 5 Anticipated DC Date: 07-17-2018 Planned Disposition: Home Primary Insurance: MEDICAID [place] Discharge Planning Comments: RAMON RECEIVED ORDER FOR DISCHARGE PLANNING AND OUTPATIENT DIALYSIS CLINIC ARRAGEMENT IN [place]. RAMON NOTIFIED JASPREET OF [facility] WHO MET WITH PT AND ADVISED THAT [facility] DOES NOT HAVE AVAILABLE CHAIR AND SHE WILL BE CONTACTING PT'S BROTHER AND WORKING FOR CLINIC ARRANGEMENT IN [place]. CM MET WITH PT IN ROOM TO DISCUSS DISCHARGE PLANNING AND NEEDS. PT REPORTS LIVING AT HOME INDEPENDENTLY AND ALONE. PT HAS A GLUCOMETER WITH NO MEDICAL EQUIPMENT PROVIDER PREFERENCE. PT HAS PERSONAL CARE WITH [facility] IN [place]. PT REPORTS SHE WILL BE ABLE TO GET TO DIALYSIS IN [place] AND THAT HER BROTHER ANA MARÍA KHAN WILL BE TRANSPORTING PT TO AND FROM DIALYSIS. CM DISCUSSED AVAILABILITY OF HOME HEALTH, REHAB SERVICES AND MEDICAL EQUIPMENT. PT DENIES DISCHARGE NEEDS, DECLINES HOME HEALTH NURSE OR THERAPY SERVICES. PT WOULD LIKE CM TO ASK PERSONAL ARE TO INCREASE THE HOURS AND DO SATURDAY SERVICES IF POSSIBLE. PT REPORTS HER SISTER WILL PICK HER UP FOR DISCHARGE HOME. CM CALLED [facility], , SPOKE TO JASPREET WHO INFORMED CM THAT PT'S HOURS ARE AT THE MAXIMUM AND SHE WILL LET THE REGISTERED NURSE KNOW OF PT'S REQUEST FOR WEEKEND HOURS TO SEE IF THEY CAN MEET PT'S EXPECTATIONS. PT DECLINES HOME HEALTH OR REHAB SERVICES. PT PLANS TO DISCHARGE HOME ALONE AND HAS PROFESSOR SCULPTURE SERVICES. FAMILY TO TRANSPORT HOME AT DISCHARGE. CM WAITING OUTPATIENT DIALYSIS CLINIC ARRANGEMENT BY [facility] COORDINATOR. Fuel Cell Technician: Mikey Funez DCP- Discharge Planning Updated by [id number]: Mikey Funez on 07/11/18 2:[address] Patient Name: KAJAL BOLTON Admission Status: Elective Accout number: [id number] Admission Date: 07-11-2018 : 1955 Admission Diagnosis: Attending: HU LUNDBERG Current LOS: 1 Anticipated DC Date: Planned Disposition: Home Primary Insurance: MEDICAID [place] Discharge Planning Comments: CM RECEIVED ORDER FOR ARRANGEMENT OF OUTPATIENT DIALYSIS. RN RAMON HOUSE SPOKE TO JSAPREET OF [facility] AND NOTIFIED OF ORDER. CM ATTEMPTED TO MEET WITH PT FOR INITIAL ASSESSMENT OF DISCHARGE NEEDS. PT WAS NOT IN ROOM AT APPROXIMATELY 1515 AND 1545 HOURS. CM TO ATTEMPT ASSESSMENT OF PT AT A LATER TIME. Fuel Cell Technician: Mikey Funez DCPIA - Discharge Planning Initial Assessment Updated by [id number]: Mikey Funez on 07/17/18 10:29 am * Is the patient Alert and Oriented? Yes * How many steps to enter\exit or inside your home? NONE * PCP DR. PARKER IN [place] * Pharmacy [facility] IN [place] * Preadmission Environment Home Alone * ADLs Independent * Equipment Glucometer * Other Equipment NO MEDICAL EQUIPMENT PROVIDER PREFERENCE * List name and contact numbers for known caregivers / representatives who currently or will assist patient after discharge: PRIETO TOLLIVER, SISTER, ANA MARÍA KHAN, BROTHER, * Verbal permission to speak to the caregivers and representatives has been obtained from the patient. Yes * Community resources currently utilized Private Duty Care * Please name any agencies selected above. [facility] [employer], M-F, 4 HOURS PER DAY, * Additional services required to return to the preadmission environment? Yes * Can the patient safely return to the preadmission environment? Yes * Has this patient been hospitalized within the prior 30 days at any hospital? No Coverage Notice Reviewer: [id number] Shruthi Funez Notice Issued Date-Time: 07/21/2018 9:00 Notice Type: IM Discharge Notice Notice Delivered To: Patient Relationship to Patient: Head Counselor Name: Delivery Method: HAND - Hand Delivered Opal Days: Prior Verbal Notification: Recipient Understood Notice: Yes Recipient Signature: Yes Med Rec Note Co-signed by Attending: Coverage Notice Comment: Last DP export: 07/21/18 8:01 a Patient Name: KAJAL BOLTON Page 01518 at 0924 All edits/amendments must be made on the electronic document DICTATION DATE: 07/21/18923 MANAGER CONSUMER: EDWARD 07/21/18923 RPT#: [id number] DC DATE: STATUS: ADM IN [facility] [address] [place] [address] END OF REPORT
--- NOTE | 2018-07-21 10:00 | NUR ---
BEE HEAVY DUTY MECHANIC FARM EQUIPMENT STATED TO ME HE SPOKE WITH PT'S SISTER PRIETO AND TOLD HER SHE CAN COME GET PT BECAUSE SHE WILL BE GETTING DISCHARGED SOON.
[2018-07-21] MEDS ORDERED: LOPRESSOR25 MG PO (10:25)
[2018-07-21] MEDS ORDERED: NEPHRO-VITE RX1 TAB PO (10:27)
[2018-07-21] MEDS ORDERED: SENSIPAR30 MG PO (10:27)
[2018-07-21] MEDS ORDERED: AMANTADINE100 M1 PO (10:29)
--- NOTE | 2018-07-21 10:57 | MORECARE ---
CASE MANAGEMENT DISCHARGE SUMMARY PATIENT: KAJAL BOLTON UNIT: [id number] ADM DATE: 07/11/18 AGE: 63 : 53 SEX: F ROOM/BED: D.5812 AUTHOR: ALISON BEE PHYSICIAN: REFERRING PHYSICIAN: ROSALIE NUNEZ MD DATE OF SERVICE: 07/21/18 Discharge Plan Patient Name: KAJAL BOLTON Facility: [facility]:[place] : 1955 Planned Disposition: Home Anticipated Discharge Date: 07/21/18 Discharge Date: Expected LOS: 10 Initial Reviewer: [id number] Initial Review Date: 07/11/2018 Generated: 07/21/18 11:57 am Comments DCP- Discharge Planning Updated by [id number]: Mikey Funez on 07/21/18 9:[address] Patient Name: KAJAL BOLTON Encounter No: [id number] : 1955 Primary Insurance: [place] Anticipated DC Date: 07-17-2018 Planned Disposition: Home DCP follow-up note: CM CALLED PT'S SISTER, PRIETO TOLLIVER, SISTER, , PROVIDED DIALYSIS SCHEDULE. PT'S SISTER REPORTS FAMILY WILL TRANSPORT UNTIL THEY CAN GET MEDICAID TRANSPORTATION ARRANGED PRIETO REMINDED CM THAT THEY WANT TO BE ON WAITING LIST FOR [place] [facility]. RN HOUSE NOTIFIED JASPREET OF [facility]. IMPORTANT MESSAGE FROM MEDICARE PROVIDED AND EXPLAINED TO PT. PT DENIES FURTHER NEEDS. FAMILY TO TRANSPORT HOME TODAY. PHOTO PRODUCER NURSE NOTIFIED Mikey Funez, CASE MANAGEMENT Appended by Mikey Funez on 07/21/2018 10:54 MD SENIOR RESEARCH SCIENTIST: CM RECEIVED DIALYSIS CLINIC WELCOME LETTER, PROVIDED COPY TO PT AND DISCUSSED DILAYSIS TIMES, DATES WELL FIRST APPOINTMENT TOMORROW. PT REPORTED UNDERSTANDING, DENIES FURHTER DISCHARGE NEEDS. OUTPATIENT DIALYSIS CLINIC: [facility], [place], 1045AM, FIRST APPOINTMENT 07-22-18, 1000AM. COPY OF DIALYSIS CLINIC WELCOME LETTER PLACED IN CHART. ROSAURA MURPHY DCP- Discharge Planning Updated by [id number]: Mikey Funez on 07/18/18 3:[address] Patient Name: KAJAL BOLTON Encounter No: [id number] : 1955 Primary Insurance: [place] Anticipated DC Date: 07-17-2018 Planned Disposition: Home DCP follow-up note: CM RECEIVED CALL FROM JASPREET OF [facility], PT HAS BEEN ACCEPTED FOR OUTPATIENT DIALYSIS, CLINIC SCHEDULE: [facility] IN [place], [facility], 1100AM. START DATE 07-22-18 PT DECLINED HOME HEALTH AND REHAB SERVICES. PT PLANS TO DISCHARGE HOME ALONE AND HAS [employer]ELD [employer] [facility] [employer]. PT PLANS TO USE FAMILY OR MEDICAID TRANSPORTATION TO GET TO DIALYSIS UNIT. FAMILY TO TRANSPORT HOME AT DISCHARGE. Overhead Door Technician: Mikey Funez DCP- Discharge Planning Updated by [id number]: Mikey Funez on 07/17/18 11:[address] Patient Name: KAJAL BOLTON Encounter No: [id number] : 1955 Primary Insurance: [place]ID [place] Anticipated DC Date: 07-17-2018 Planned Disposition: Home DCP follow-up note: CM RECEIVED MESSAGE FROM JASPREET MARCOS [facility] WHO IS WORKING ON GETTING PT'S DIALYSIS CLINIC ARRANGEMENT IN [place]; JASPREET NEEDS TO VERIFY THAT FAMILY IS GOING TO TRANSPORT PT. RAMON SPOKE TO PT IN ROOM WHO CONTINUES TO REPORT PLAN FOR HER BROTHER ANA MARÍA TO TRANSPORT TO AND FROM [facility] IN [place]. KAJAL BOLTON provided verbal consent to discuss current and ongoing needs with/in the presence of: ANA MARÍA KHAN, BROTHER, OR PRIETO TOLLIVER, SISTER, . CM CALLED AND SPOKE TO BOTH PRIETO AND ANA MARÍA AT PRIETO'S HOME. BOTH REPORT PLAN TO ARRANGE MEDICAID TRANSPORTATION FOR DIALYSIS, PT HAS BEEN USING THEM ALREADY FOR MEDICAL APPOINTMENTS. THEY HAVE THE NUMBER FOR MEDICAID TRANSPORTATION SERVICES. ANA MARÍA AND PRIETO REPORT THAT FAMILY WILL BE TAKING PT TO DIALYSIS IF MEDICAID TRANSPORT IS NOT ABLE TO DO SO. THEY UNDERSTAND THAT PT WILL HAVE TO HAVE DIALYSIS IN [place] AND ASKED THAT PT BE PLACED IN WAITING LIST FOR DIALYSIS CENTER IN [place]. EVAN NAVARRO HOUSE INFORMED JASPREET OF [facility]. PT DECLINES HOME HEALTH OR REHAB SERVICES. PT PLANS TO DISCHARGE HOME ALONE AND HAS [employer]ELD [employer] [facility] [employer]. FAMILY TO TRANSPORT HOME AT DISCHARGE. CM WAITING OUTPATIENT DIALYSIS CLINIC ARRANGEMENT BY [facility] COORDINATOR. Overhead Door Technician: Mikey Funez DCP- Discharge Planning Updated by [id number]: Faby Martinez on 07/17/18 10:[address] SPOKE WITH JASPREET WILD, CLINICAL LIASON FOR [place], AFTER ORDER RECEIVED FROM DR LUNDBERG TO TRY TO PLACE THE PATIENT IN THE [place] [facility] INSTEAD OF THE [place] [facility] TO THEM BEING PARTIALLY SHUT DOWN FOR RENOVATIONS. SHE STATED THAT SHE WAS AWARE OF THIS AND ACTUALLY THE PATIENT HAD REQUESTED THE [facility] UNIT FROM THE START. SHE SAID THAT CONTACT WOULD NEED TO BE MADE WITH ANA MARÍA BEFORE A CHAIR TIME WILL BE GIVEN. I EXPLAINED WE WOULD TRY TO CONTACT ANA MARÍA BECAUSE SHE STATED THAT CURRENTLY SHE WAS TIED UP IN [place]. ATTEMPT WAS MADE TO CONTACT HIM AT THE NUMBER PROVIDED BY THE PATIENT AT [phone]. I RECEIVED A RECORDING STATING THAT THE AREA CODE FOR THAT NUMBER HAD CHANGED TO 479. I HUNG UP AND REDIALED THE NUMBER WITH THE 479 AND WAS TOLD IT WAS A DISCONNECTED NUMBER. BEE LOCATED ANOTHER CONTACT NUMBER IN HER CHART AND CALLED IN AN ATTEMPT TO FIND ANA MARÍA. HE REACHED THE SISTER PRIETO TOLLIVER ([phone]) AND SHE HANDED THE PHONE TO ANA MARÍA ([phone]). HE WOULD PREFER THAT THE PATIENT BE SENT TO THE [facility] IN [place] BUT UNDERSTANDS AT THE MOMENT THE NEED TO GO TO [place]. HIS PLAN IS FOR THE PATIENT TO TAKE THE MEDICAID VAN TO DIALYSIS AND ONLY TRANSPORT HER ON THE DAYS THE MEDICAID VAN DOES NOT RUN. THIS INFORMATION WAS RELAYED TO JASPREET. NOW THAT PATIENT WILL HAVE TRANSPORT, HOPEFULLY WE CAN GET A CHAIR TIME. 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 CM NOTIFIED JASPREET OF [facility] WHO MET WITH PT AND ADVISED THAT [facility] DOES NOT HAVE AVAILABLE CHAIR AND SHE WILL BE CONTACTING PT'S BROTHER AND WORKING FOR CLINIC ARRANGEMENT IN [place]. CM MET WITH PT IN ROOM TO DISCUSS DISCHARGE PLANNING AND NEEDS. PT REPORTS LIVING AT HOME INDEPENDENTLY AND ALONE. PT HAS A GLUCOMETER WITH NO MEDICAL EQUIPMENT PROVIDER PREFERENCE. PT HAS PERSONAL CARE WITH [facility] IN [place]. PT REPORTS SHE WILL BE ABLE TO GET TO DIALYSIS IN [place] AND THAT HER BROTHER ANA MARÍA KHAN WILL BE TRANSPORTING PT TO AND FROM DIALYSIS. CM DISCUSSED AVAILABILITY OF HOME HEALTH, REHAB SERVICES AND MEDICAL EQUIPMENT. PT DENIES DISCHARGE NEEDS, DECLINES HOME HEALTH NURSE OR THERAPY SERVICES. PT WOULD LIKE CM TO ASK PERSONAL ARE TO INCREASE THE HOURS AND DO SATURDAY SERVICES IF POSSIBLE. PT REPORTS HER SISTER WILL PICK HER UP FOR DISCHARGE HOME. CM CALLED [facility], , SPOKE TO JASPREET WHO INFORMED CM THAT PT'S HOURS ARE AT THE MAXIMUM AND SHE WILL LET THE REGISTERED NURSE KNOW OF PT'S REQUEST FOR WEEKEND HOURS TO SEE IF THEY CAN MEET PT'S EXPECTATIONS. PT DECLINES HOME HEALTH OR REHAB SERVICES. PT PLANS TO DISCHARGE HOME ALONE AND HAS [employer]ELD [employer]. FAMILY TO TRANSPORT HOME AT DISCHARGE. CM WAITING OUTPATIENT DIALYSIS CLINIC ARRANGEMENT BY [facility] COORDINATOR. Overhead Door Technician: Mikey Funez DCP- Discharge Planning Updated by [id number]: Mikey Funez on 07/11/18 2:[address] Patient Name: KAJAL BOLTON Admission Status: Elective Accout number: [id number] Admission Date: 07-11-2018 : 1955 Admission Diagnosis: Attending: HU LUNDBERG Current LOS: 1 Anticipated DC Date: Planned Disposition: Home Primary Insurance: MED[place]ID [place] Discharge Planning Comments: CM RECEIVED ORDER FOR ARRANGEMENT OF OUTPATIENT DIALYSIS. RN RAMON HOUSE SPOKE TO JASPREET OF [facility] AND NOTIFIED OF ORDER. CM ATTEMPTED TO MEET WITH PT FOR INITIAL ASSESSMENT OF DISCHARGE NEEDS. PT WAS NOT IN ROOM AT APPROXIMATELY 1515 AND 1545 HOURS. CM TO ATTEMPT ASSESSMENT OF PT AT A LATER TIME. Overhead Door Technician: Mikey Funez DCPIA - Discharge Planning Initial Assessment Updated by [id number]: Mikey Funez on 07/17/18 10:29 am * Is the patient Alert and Oriented? Yes * How many steps to enter\exit or inside your home? NONE * PCP DR. PARKER IN [place] * Pharmacy [facility] IN [place] * Preadmission Environment Home Alone * ADLs Independent * Equipment Glucometer * Other Equipment NO MEDICAL EQUIPMENT PROVIDER PREFERENCE * List name and contact numbers for known caregivers / representatives who currently or will assist patient after discharge: PRIETO TOLLIVER, SISTER, ANA MARÍA KHAN, BROTHER, * Verbal permission to speak to the caregivers and representatives has been obtained from the patient. Yes * Community resources currently utilized Private Duty Care * Please name any agencies selected above. [facility], M-F, 4 HOURS PER DAY, * Additional services required to return to the preadmission environment? Yes * Can the patient safely return to the preadmission environment? Yes * Has this patient been hospitalized within the prior 30 days at any hospital? No Coverage Notice Reviewer: [id number] Shruthi Funez Notice Issued Date-Time: 07/21/2018 9:00 Notice Type: IM Discharge Notice Notice Delivered To: Patient Relationship to Patient: Setter Up Name: Delivery Method: HAND - Hand Delivered Opal Days: Prior Verbal Notification: Recipient Understood Notice: Yes Recipient Signature: Yes Med Rec Note Co-signed by Attending: Coverage Notice Comment: Last DP export: 07/21/18 8:24 a Patient Name: KAJAL BOLTON Page [id number] at 1057 All edits/amendments must be made on the electronic document DICTATION DATE: 07/21/18 1056 MANAGER FIELD SERVICES: EDWARD 07/21/18 1056 RPT#: [id number] DC DATE: STATUS: ADM IN [facility] [address] [place] [address] END OF REPORT
--- NOTE | 2018-07-21 11:00 | NUR ---
PT GIVING HERSELF BATH WHILE SITTING ON SIDE OF BED.
--- NOTE | 2018-07-21 12:00 | NUR ---
PT STATES SHE CALLED HER SISTER EDITH AND TOLD HER SHE IS GETTING TO GO HOME AND TO COME PICK HER UP.
--- NOTE | 2018-07-21 12:30 | NUR ---
ASSISTED WITH GETTING DRESSED FOR DC. CALL LIGHT IN REACH. WILL CONT. PLAN OF CARE.
--- NOTE | 2018-07-21 12:47 | NUR ---
TELEMETRY DC'D. DISCHARGE INSTRUCTIONS GIVEN TO PT AND PT'S SISTER PRIETO. ALL QUESTIONS ANSWERED. CHART COPY SIGNED.
--- NOTE | 2018-07-21 12:52 | NUR ---
PT'S FAMILY UPSET ABOUT DIRTYNESS OF ROOM. FAMILY SPEAKING WITH TUAN GORDONDAT INSTRUCTOR.
--- NOTE | 2018-07-21 12:54 | NUR ---
PT TAKEN DOWN VIA WC BY VOLUNTEER ACCOMPANIED BY FAMILY.
== END 2018-07-21 12:55 | disposition home or self-care (01) | DRG 981 ==
LOC: D.OPS 07:03 → D.M2 13:12 → D.OPS 13:15 → D.M2 13:17
PROVIDERS: Internal Medicine Interventional Cardiology; Internal Medicine Nephrology; Surgery; ADMIT Internal Medicine Nephrology
PROC: 0JH63XZ Insertion of Tunneled Vascular Access Device into Chest Subcutaneous Tissue and Fascia, Percutaneous Approach (ICD-10-PCS; 2018-07-11)
PROC: 05HM33Z Insertion of Infusion Device into Right Internal Jugular Vein, Percutaneous Approach (ICD-10-PCS; 2018-07-11)
PROC: B5131ZA Fluoroscopy of Right Jugular Veins using Low Osmolar Contrast, Guidance (ICD-10-PCS; 2018-07-11)
PROC: 5A1D70Z Performance of Urinary Filtration, Intermittent, Less than 6 Hours Per Day (ICD-10-PCS; 2018-07-11)
PROC: 03160KD Bypass Left Axillary Artery to Upper Arm Vein with Nonautologous Tissue Substitute, Open Approach (ICD-10-PCS; principal; 2018-07-15 10:00)
DX: E87.5 Hyperkalemia (principal); N18.6 End stage renal disease; I12.0 Hypertensive chronic kidney disease with stage 5 chronic kidney disease or end stage renal disease; E11.22 Type 2 diabetes mellitus with diabetic chronic kidney disease; E04.1 Nontoxic single thyroid nodule; F20.9 Schizophrenia, unspecified; D47.2 Monoclonal gammopathy; E03.9 Hypothyroidism, unspecified; R00.1 Bradycardia, unspecified; I95.81 Postprocedural hypotension; Z87.891 Personal history of nicotine dependence

== ENCOUNTER 2019-01-26 14:16 | Emergency (ER) | payer OTHER ==
[~2019-01-26] VITALS: Ht 170.2 cm; Wt 86.4 kg
[~2019-01-26 14:16] MED LIST changes: +AMANTADINE100 M1 PO; +BASAGLAR K100 UNIT/1 SC; +BUTALB-APAP-CA1 EACH PO; +FUROSEMIDE40 MG PO; +GLIPIZIDE10 MG PO; +LOPRESSOR25 MG PO; +NEPHRO-VITE RX1 TAB PO; +NORVASC5 MG PO; +SENSIPAR30 MG PO; +SODIUM BICARBO325 MG PO; +XYZAL PO; +ZOCOR20 MG PO; +ZYLOPRIM100 MG PO
[2019-01-26 14:20] VITALS: Ht 170.2 cm; Wt 86.4 kg
[2019-01-26] MEDS ORDERED: COREG6.25 MG PO (14:28)
[2019-01-26] MEDS ORDERED: PEPCID AC20 MG PO ×2 (14:30→14:32)
[2019-01-26] MEDS ORDERED: MELATONIN 3 MG1 TAB PO (14:30)
[2019-01-26] MEDS ORDERED: LIPITOR20 MG PO (14:33)
[2019-01-26] MEDS ORDERED: BENZTROPINE MESY1 MG PO (14:35)
[2019-01-26] MEDS ORDERED: ABILIFY10 MG PO (14:35)
[2019-01-26] MEDS ORDERED: PROZAC20 MG PO (14:36)
[2019-01-26] MEDS ORDERED: VALIUM5 MG PO (14:36)
[2019-01-26 15:48] LABS: BASOPHILS 0.2 % (0-2); EOSINOPHILS 0 % (0-7); HEMATOCRIT 31.7 % (36.0-48.0); HEMOGLOBIN 9.7 g/dL (12-16); LYMPHOCYTES 19.9 % (15-50); MCH 27.8 pg (26.0-34.0); MCHC 30.6 g/dL (31.0-37.0); MCV 90.8 fL (80.0-100.0); MEAN PLATELET VOLUME 9.6 fL (7.4-10.4); MONOCYTES 17.7 % (2-11); NEUTROPHILS 62.2 % (40-80); PLATELET COUNT 215 10x3/uL (130-400); RBC 3.49 10x6/uL (4.00-5.40); RDW 18.5 % (11.5-14.5); WBC 4.2 10x3/uL (4.8-10.8)
[2019-01-26 16:11] LABS: ALBUMIN 3.2 g/dL (3.4-5.0); ANION GAP 12.8 mmol/L (8-16); BILIRUBIN - TOTAL 0.39 mg/dL (0.2-1.3); CALCIUM 8.2 mg/dL (8.5-10.1); CARBON DIOXIDE 29.2 mmol/L (21.0-32.0); CREATININE - SERUM 5.4 mg/dL (0.6-1.3); PROTEIN - SERUM 7.2 g/dL (6.4-8.2)
[2019-01-26 18:59] VITALS: BP 13/80
== END 2019-01-26 19:01 | disposition home or self-care (01) ==
LOC: D.ER 14:16
PROVIDERS: Family Medicine
DX: M54.5 Low back pain (principal)